=== PATIENT | female | born 1950 | race Caucasian/White ===

== ENCOUNTER → 2019-07-20 15:20 | Outpatient (BNVA) | payer MEDICARE, MEDICAID, SELFPAY | PROVIDERS: Family Provider Family Medicine; PCP Family Medicine; Visit Provider Internal Medicine | DX: K75.81 Nonalcoholic steatohepatitis (NASH) (principal); Z12.11 Encounter for screening for malignant neoplasm of colon | CPT/HCPCS: 80053; 80061; 83036; 85007; 85027 ==

== ENCOUNTER 2019-07-29 08:11 | Day surgery (SDC) | payer MEDICARE, MEDICAID, SELFPAY ==
[2019-07-28 08:03] VITALS: BMI 35.2
[2019-07-29 08:36] VITALS: BP 100/78; PULSE 76; RESP 18; TEMP 36.8; O2SAT 96
--- NOTE | 2019-07-29 08:39 | ANES.PREANES ---
Pre-Anesthetic Assessment Pre-Anesthetic Assessment: Height/Weight: Height 1.7 m Weight 102.058 kg Temp Pulse Resp BP Pulse Ox 98.3 F 76 18 100/78 96 07/29/19 08:36 07/29/19 08:36 07/29/19 08:36 07/29/19 08:36 07/29/19 08:36 Preop Diagnosis: Screen for colon cancer Proposed Procedure: Operation Date: 07/29/19 09:30 Proposed Procedures p Colonoscopy(Not Applicable) - Jose Garza MD Last Intake: 00:00 Social: Social History: No alcohol and No tobacco Exam: Pre-Anes Outpt Exam: alert, oriented x 3, clear to auscultation bilaterally and regular rate & rhythm History/ROS: No significant history except as noted and No significant complaints Pulmonary: Pulmonary: Asthma CV/HEM: CV/HEM: HTN : : None reported Hepatic: Hepatic: Hepatitis GI: GI: GERD Metabolic: Metabolic: None reported Musc/skel: Musc/skel: Lower Back Pain Neuropsych: Neuropsych: Anxiety and Depression Anesthetic Plan: ASA status: III Anesthesia: Anesthesia Evaluation and MAC Risk of > 500 ml blood loss (7ml/kg in children): No PFSH Anesthesia PFSH: Social History Smoking and tobacco status: former smoker Alcohol intake: never Marital status: Data Anesthesia Cardiac Studies: No Data to Display
[2019-07-29] MEDS: sodium chloride 0.9% 1,000 ML 30 ML (08:40)
--- NOTE | 2019-07-29 08:51 | PM.HPUD ---
H&P update H&P Update: DATE OF SURGERY/PROCEDURE: 07/29/19 DATE H&P PERFORMED: 07/20/19 H&P UPDATE INFORMATION: H&P completed within last 30 days and No changes to prior documentation PLANNED PROCEDURE: Operation Date: 07/29/19 09:30 Proposed Procedures p Colonoscopy(Not Applicable) - Jose Garza MD Full H&P Perinent History: Family History: Family History (Updated 07/08/19 @ 14:06 by Elvia Dumont LPN) Sister Stroke Other Cancer Heart disease Hypertension Social History: Social History Smoking and tobacco status: former smoker Alcohol intake: never Marital status:
[2019-07-29 10:04] VITALS: BP 129/73; PULSE 62; RESP 16; TEMP 36.6; O2SAT 94
[2019-07-29 10:16] VITALS: BP 135/85; PULSE 65; RESP 20; O2SAT 96
== END 2019-07-29 10:22 | disposition home or self-care (01) ==
PROVIDERS: Family Provider Family Medicine; PCP Family Medicine; Visit Provider Internal Medicine
PROC: 0DJD8ZZ Inspection of Lower Intestinal Tract, Via Natural or Artificial Opening Endoscopic (ICD-10-PCS; CPT 45378; principal; 2019-07-29 09:30)
DX: Z12.11 Encounter for screening for malignant neoplasm of colon (principal); K76.9 Liver disease, unspecified; K75.81 Nonalcoholic steatohepatitis (NASH); Z79.82 Long term (current) use of aspirin; I10 Essential (primary) hypertension; K21.9 Gastro-esophageal reflux disease without esophagitis
CPT/HCPCS: 12345; 45378; 96365; G0121; J2704; J7030

== ENCOUNTER 2019-08-03 09:52 | Outpatient (CLI) | payer MEDICARE, MEDICAID, SELFPAY ==
--- NOTE | 2019-08-03 10:15 | US_ITS ---
WS: [id number] RIGHT UPPER QUADRANT ULTRASOUND HISTORY: History of CLAY COMPARISON: 06/03/2019 Liver: 19.5 cm in length. Moderate enlargement of the liver with coarsened echotexture and changes of hepatic steatosis. Gallbladder: Normally distended gallbladder with no stones or wall thickening. CBD: 7 mm Pancreas: Tail is obscured by bowel gas. Body and head are normal. Right kidney: 10.3 cm in length. Normal echogenicity with no mass or hydronephrosis. Aorta and IVC: Unremarkable. No ascites. US/US liver [id number] IMPRESSION: 1. Normal gallbladder. 2. Moderate hepatomegaly and hepatic steatosis, similar to the prior study. 3. Common bile duct is top limits normal. There has been a slight increase in size of the common bile duct since 06/03/2019. Increase in size from 3.2 mm to 7.0 mm. May not be significant. If symptoms persist MRCP may be helpful to bett er evaluate the common bile duct.
== END 2019-08-03 09:53 | disposition home or self-care (01) ==
LOC: RAD 09:53
PROVIDERS: Family Provider Family Medicine; PCP Family Medicine; Visit Provider Internal Medicine
DX: K75.81 Nonalcoholic steatohepatitis (NASH) (principal); K76.0 Fatty (change of) liver, not elsewhere classified
CPT/HCPCS: 76705

== ENCOUNTER 2020-01-26 14:39 | Outpatient (CLI) | payer MEDICARE, MEDICAID, SELFPAY ==
--- NOTE | 2020-01-26 14:52 | MM_ITS ---
WS: [id number] BILATERAL DIGITAL SCREENING MAMMOGRAPHY WITH CAD CLINICAL INFORMATION: SCREENING HISTORY: Screening mammogram. No current complaints. COMPARISON: TECHNIQUE: Bilateral CC and MLO views. FINDINGS: Scattered fibroglandular densities bilaterally. No suspicious focal mass, asymmetry, calcifications, or architectural distortion. No evidence of malignancy. Stable nodular density or intramammary lymph node central right breast MM/[id number] IMPRESSION: BI-RADS: 2-Benign FOLLOW UP: 1 Year Follow-up Recommend return to annual screening mammography.
== END 2020-01-26 14:40 | disposition home or self-care (01) ==
PROVIDERS: PCP Family Medicine; Visit Provider Family Medicine
DX: Z12.31 Encounter for screening mammogram for malignant neoplasm of breast (principal)
CPT/HCPCS: 77067

== ENCOUNTER → 2020-02-16 12:12 | Outpatient (BNVA) | payer MEDICARE, MEDICAID, SELFPAY | PROVIDERS: PCP Family Medicine; Visit Provider Nurse Practitioner Family | DX: B37.2 Candidiasis of skin and nail (principal); N39.0 Urinary tract infection, site not specified | CPT/HCPCS: 80053; 81000 ==

== ENCOUNTER → 2020-12-13 11:45 | Outpatient (BNVA) | payer MEDICARE, MEDICAID, SELFPAY | PROVIDERS: PCP Family Medicine; Visit Provider Obstetrics & Gynecology | DX: N89.8 Other specified noninflammatory disorders of vagina (principal); N95.0 Postmenopausal bleeding; N84.1 Polyp of cervix uteri | CPT/HCPCS: 87481; 87512; 87799 ==

== ENCOUNTER → 2020-12-19 15:41 | Outpatient (BNVA) | payer MEDICARE, MEDICAID, SELFPAY | PROVIDERS: PCP Family Medicine; Visit Provider Obstetrics & Gynecology | DX: N95.0 Postmenopausal bleeding (principal); N85.4 Malposition of uterus; N84.1 Polyp of cervix uteri | CPT/HCPCS: 76830 ==

== ENCOUNTER → 2021-01-23 12:31 | Outpatient (BNVA) | payer MEDICARE, MEDICAID, SELFPAY | PROVIDERS: PCP Family Medicine; Visit Provider Obstetrics & Gynecology | DX: Z20.822 Contact with and (suspected) exposure to COVID-19 (principal); N84.1 Polyp of cervix uteri; N95.0 Postmenopausal bleeding | CPT/HCPCS: 87635 ==

== ENCOUNTER 2021-01-28 07:45 | Day surgery (SDC) | payer MEDICARE, MEDICAID, SELFPAY ==
[2021-01-24 11:43] VITALS: BMI 37.1
[2021-01-24 12:11] LABS: Basophils # 0.1 10^3/uL (0.0-0.1); Basophils % 0.7 %; Eosinophils # 0.3 10^3/uL (0.0-0.8); Eosinophils % 3.3 %; Hematocrit 39.6 % (37.0-47.0); Hemoglobin 12.4 g/dL (11.5-15.3); Lymphocytes # 2.2 10^3/uL (0.8-4.8); Lymphocytes % 24.8 %; Mean Corpuscular HGB Conc 31.3 g/dL (30.0-36.0); Mean Corpuscular Hemoglobin 28.3 pg (28.0-34.0); Mean Corpuscular Volume 90.4 fL (81-99); Mean Platelet Volume 9.9 fL (7.4-10.4); Monocytes # 0.8 10^3/uL (0.2-0.9); Monocytes % 8.6 %; Neutrophils # 5.59 10^3/uL (1.8-7.7); Neutrophils % 62.4 %; Nucleated Red Blood Cells % 0 %; Platelet Count 278 10^3/cmm (130-400); Red Blood Count 4.38 10^6/uL (4.1-5.3); Red Cell Distribution Width 14.6 % (12.1-15.1)
[2021-01-24 12:36] LABS: Anion Gap 15.2 (5-19); Blood Urea Nitrogen 14 mg/dL (8-23); Calcium 8.9 mg/dL (8.5-10.5); Carbon Dioxide 25 mmol/L (22-29); Chloride 104 mmol/L (98-107); Glomerular Filtration Rate 62.3 mL/min (90-130); Glucose 149 mg/dL (65-115); Osmolality Calculated 293 mOsm/kg (285-295); Potassium 4.2 mmol/L (3.5-5.1); Sodium 140 mmol/L (136-145)
--- NOTE | 2021-01-24 12:51 | P.ANESASSM_ITS ---
Pre-Anesthetic Assessment Pre-Anesthetic Assessment: Height/Weight: Height 1.68 m Weight 104.326 kg Preop Diagnosis: Screen for colon cancer Proposed Procedure: Operation Date: 01/28/21 12:55 Proposed Procedures p Hysteroscopy, dilation and curettage with myosure [id number] N95.0 N84.1(Not Applicable) - Jess Mccartney MD Was Beta Raghu taken within 24 hours: Yes Was Clonidine taken within 24 hours: N/A Social: Social History: Tobacco and No alcohol Exam: Pre-Anes Outpt Exam: alert, oriented x 3, clear to auscultation bilaterally and regular rate & rhythm Airway: Submandibular: WNL Cervical ROM: WNL MP: 2 Dentition: False Pulmonary: Pulmonary: COPD CV/HEM: CV/HEM: HTN Hepatic: Hepatic: Hepatitis (CLAY) GI: GI: GERD Metabolic: Metabolic: Morbid obesity Anesthetic Plan: ASA status: 3 Anesthesia: General Risk of > 500 ml blood loss (7ml/kg in children): No PFSH Anesthesia PFSH: Family History Sister Stroke mini strokes Hypertension Father Cancer Lung Hypertension Mother Cancer unsure-had to do with the heart Hypertension Brother Hypertension Denies family history of Diabetes Ovarian cyst Clotting disorder Heart disease Chronic kidney disease (CKD) Bleeding disorder Thyroid disease Social History Marital status: Data Anesthesia CBC & Chem 7: 01/24/21 11:57 01/24/21 11:57 Other Labs: Laboratory Results - last 48 hr 01/24/21 01/24/21 11:57 11:57 WBC 9.0 RBC 4.38 Hgb 12.4 Hct 39.6 MCV 90.4 MCH 28.3 MCHC 31.3 RDW 14.6 Plt Count 278 MPV 9.9 Neut % (Auto) 62.4 Lymph % (Auto) 24.8 [place] % (Auto) 8.6 Eos % (Auto) 3.3 Baso % (Auto) 0.7 Neut # (Auto) 5.59 Lymph # (Auto) 2.2 [place] # (Auto) 0.8 Eos # (Auto) 0.3 Baso # (Auto) 0.1 Nucleated RBC % (auto) 0 Nucleated RBCs # 0.0 Sodium 140 Potassium 4.2 Chloride 104 Carbon Dioxide 25 Anion Gap 15.2 BUN 14 Creatinine 0.9 GFR Calculation 62.3 L Glucose 149 H Calculated Osmolality 293 Calcium 8.9 Cardiac Studies: No Data to Display
[2021-01-28] VITALS (8 sets, daily range): BP systolic 81–157; BP diastolic 68–97; PULSE 72–81; RESP 17–20; TEMP 36.9–37.3; O2SAT 92–97
--- NOTE | 2021-01-28 08:02 | W.PM.OPSUD ---
Surgery/Procedure H&P Update DATE OF PROCEDURE: January 28, 2021 DATE H&P PERFORMED: 01/23/21 H&P UPDATE INFORMATION: I have reviewed H&P completed within last 30 days, I have examined patient prior to procedure and No changes to prior documentation CHANGES TO PREVIOUS DOCUMENTATION: The patient reports that she took all of the preop medication. (cytotec, phenergan, ibuprofen) Last dose at 6:30 this morning. PREOP DIAGNOSIS: post menopausal bleeding, endocervical polyp PLANNED PROCEDURE: Operation Date: 01/28/21 12:55 Proposed Procedures p Hysteroscopy, dilation and curettage with myosure [id number] N95.0 N84.1(Not Applicable) - Jess Mccartney MD
[2021-01-28] MEDS: ketorolac 30 mg/mL INJ IVP (08:14)
[2021-01-28] MEDS: sodium chloride 0.9% 1,000 ML 30 ML IV (08:15)
--- NOTE | 2021-01-28 08:29 | P.ANESUD_ITS ---
Pre-Anesthetic Update Pre-Anesthetic Assessment: Date of Surgery/Procedure: 01/28/21 Preop Dolly gnosis: post menopausal bleeding, endocervical polyp Proposed Procedure: Operation Date: 01/28/21 12:55 Proposed Procedures p Hysteroscopy, dilation and curettage with myosure [id number] 38080 N95.0 N84.1(Not Applicable) - Jess Mccartney MD Any changes to Pre-Anesthetic Assessment?: No Last Intake: Intake Last Liquid Date 01/27/21 Last Liquid Time 21:00 Last Solid Date 01/27/21 Last Solid Time 21:00 Vitals: Temperature 99.2 F 01/28/21 08:01 Temperature Source Temporal Artery S can 01/28/21 08:01 Pulse Rate 77 01/28/21 08:01 Respiratory Rate 18 01/28/21 08:01 Blood Pressure 157/97 01/28/21 08:01 Blood Pressure Andreia n 117 01/28/21 08:01 Pulse Oximetry 95 01/28/21 08:01 Oxygen Delivery Me thod 01/28/21 08:11 Exam: Pre-Anes Outpt Exam: alert, oriented x 3, clear to auscultation bi laterally and regular rate & rhythm
--- NOTE | 2021-01-28 09:30 | P.OP_ITS ---
Operative Report Date of procedure: January 28, 2021 Pre-op Diagnosis: post menopausal bleeding, endocervical polyp Post-op diagnosis: same Procedure Done: hysteroscopy, Dilation and curettage with myosure Specimens removed/disposition: endocervical polyp to pathology Surgeon: Jess Mccartney Anesthesia: General Estimated blood loss (mL): 50 IV fluids (mL): 800 Urine output (mL): 0 Complications: cervical laceration at 9:00 Findings: 7 week sized atrophic uterus with several endocervical polyps Condition: stable Disposition: PACU Brief History: The patient presented for PMB. She was found to have an endocervical polyp on exam. It was flush with the cervix and unable to be removed in the office Procedure: The patient was taken to the operating room where monitored anesthesia was administered and to be adequate. She was prepped and draped in the normal sterile fashion in the dorsal lithotomy position in [facility]. A weighted speculum was placed into the vagina and the anterior lip of the cervix grasped with a single-tooth tenaculum. The uterus was sounded to 7 cm. The cervix was dilated to 16 [place]. The hysteroscope was advanced into the endometrial cavity. There was an atrophic endometrium and several endocervical polyps visualized. The MyoSure device was activated and the endocervical tissue was removed. Pictures were taken pre and post procedure. There was a cervical laceration at 9:00. This was likely from the polypectomy and this was the deficit tissue. This was repaired with 0 Vicryl in 2 single interrupted sutures. There was also an area at 7:00 that was bleeding and a stitch was pl aced here as well. All instruments were removed. There was good hemostasis post suture and vaginal packing was placed to tamponade any further bleeding. It will be removed prior to discharge. The patient tolerated the procedure well. Sponge lap and needle counts were correct x3. She was taken to the recovery room in stable condition.
--- NOTE | 2021-01-28 09:39 | PM.DCS ---
Discharge Providers Date of Discharge: January 28, 2021 Attending Provider at Discharge: Jess Mccartney MD Primary Care Provider: Dennis Regalado MD Diagnoses at Discharge Discharge Diagnosis (1) Postoperative state: Status: Acute Reason for Visit Reason for Visit: Hysteroscopy, dilation and curettage with myosure Hospital Course Hospital Course The patient was admitted for surgery. She did well postoperatively and was ready for discharge. Discharge Data Data Completed and Pending: Pending at discharge Category Date Time Status ES surgery / GI i mages Routine Exams 01/28/21 08:15 Taken Pathology: Surgic al [PTH] Routine Pth 01/28/21 09:10 Ordered Vitals: Last Vital Signs Temp 99.2 F 01/28/21 09:33 Pulse 74 01/28/21 09:35 Resp 18 01/28/21 09:35 BP 113/69 01/28/21 09:35 Pulse Ox 97 01/28/21 09:35 Discharge Plan Discharge Patient Disposition: Home Condition: Stable Prescriptions: Continued duloxetine [Cymbalta] 60 mg capsule,delayed release(DR/EC) 60 mg PO ONCE RF: 0 hydrocodone-acetaminophen [[place]] 10-325 mg tablet 1 tab PO Q6H RF: 0 metoprolol tartrate 50 mg tablet 50 mg PO BID RF: 0 clonazepam 1 mg tablet 1 mg PO QID RF: 0 aspirin [Adult Aspirin Regimen] 81 mg tablet,delayed release (DR/EC) 81 mg PO DAILY RF: 0 pantoprazole 20 mg tablet,delayed release (DR/EC) 20 mg PO BID RF: 0 pregabalin [Lyrica] 75 mg capsule 75 mg PO BID RF: 0 Symbicort 160-4.5 mcg/actuation HFA aerosol inhaler 2 puff INHALATION BID RF: 0 duloxetine 30 mg capsule, delayed rel sprinkle 30 mg PO DAILY RF: 0 quetiapine [Seroquel] 100 mg tablet 400 mg PO .COMPLEX RF: 0 misoprostol [Cytotec] 200 mcg tablet 600 mcg PO Q6H Qty: 12 RF: 0 promethazine 25 mg tablet 25 mg PO Q6H PRN (Reason: nausea and vomiting) Qty: 30 RF: 0 ibuprofen 600 mg tablet 600 mg PO Q6H PRN (Reason: pain) Qty: 30 RF: 0 Discharge Orders: Discharge Order (Routine); Ordered 01/28/21 Ordered By: Jess Mccartney Discharge Attestations Time Spent in Discharge Care*: less than 30 min Quality Metrics Clinical Quality Measures During this hospital stay, did patient experience: None Coding Level of Care Code Acute Chg FW DC note Diagnoses Postoperative state Z98.890
--- NOTE | 2021-01-28 09:40 | SUR.PHASEI ---
PT TO PACU SLEEPS WITH ORAL AIRWAY IN PLACE , VSS IV PATENT ABD SOFT, TORIE PAD D/I PT AWAKES TO VOICE ORAL AIRWAY OUT NOW
--- NOTE | 2021-01-28 15:09 | ANE.PACU2 ---
Inpatient post-anesthesia follow up: Airway intact: Yes Vital signs: Temperature 98.4 F Pulse Rate 77 Respiratory Rate 18 Blood Pressure 120/85 Pulse Oximetry 94 Oxygen Delivery Me thod Room Air Oxygen Flow Rate 8 Fraction of Inspir ed Oxygen Hydration adequate: Yes Nausea and vomiting: No Pain level: 3 Mental status: Baseline
== END 2021-01-28 10:52 | disposition home or self-care (01) ==
PROVIDERS: PCP Family Medicine; Visit Provider Obstetrics & Gynecology
PROC: 0UDB8ZZ Extraction of Endometrium, Via Natural or Artificial Opening Endoscopic (ICD-10-PCS; CPT 58558; principal; 2021-01-28 08:45)
DX: N95.0 Postmenopausal bleeding (principal); J44.9 Chronic obstructive pulmonary disease, unspecified; I10 Essential (primary) hypertension; K21.9 Gastro-esophageal reflux disease without esophagitis; E66.01 Morbid (severe) obesity due to excess calories; Z68.37 Body mass index [BMI] 37.0-37.9, adult; Z87.891 Personal history of nicotine dependence
CPT/HCPCS: 58558; 80048; 85025; 87086; 88305; 96365; 96374; J0690; J1100; J1885; J2405; J2704; J3010; J7030

== ENCOUNTER → 2021-02-11 12:53 | Outpatient (BNVA) | payer MEDICARE, MEDICAID, SELFPAY | PROVIDERS: PCP Family Medicine; Visit Provider Obstetrics & Gynecology | DX: R30.0 Dysuria (principal) | CPT/HCPCS: 81000; 87077; 87086; 87184 ==

== ENCOUNTER → 2021-02-25 13:20 | Outpatient (BNVA) | payer MEDICARE, MEDICAID, SELFPAY | PROVIDERS: PCP Family Medicine; Visit Provider Obstetrics & Gynecology | DX: R32 Unspecified urinary incontinence (principal) | CPT/HCPCS: 81000 ==

== ENCOUNTER 2021-05-13 10:28 | Outpatient (CLI) | payer MEDICARE, MEDICAID, SELFPAY ==
--- NOTE | 2021-05-13 10:35 | MM_ITS ---
WS: [id number] BILATERAL SCREENING DIGITAL MAMMOGRAM WITH CAD HISTORY: SCREENING COMPARISON: 01/26/2020 and 12/13/2018 Bilateral CC and MLO views submitted. Computer aided detection analyzed. Breast composition: There are scattered areas of fibroglandular density. No suspicious masses, microc alcifications or architectural distortion. Benign calcifications in each breast. MM/[place] [id number] IMPRESSION: BI-RADS: 2-Benign FOLLOW UP: 1 Year Follow-up
== END 2021-05-13 10:29 | disposition home or self-care (01) ==
LOC: RADSHAW 10:32
PROVIDERS: PCP Family Medicine; Visit Provider Family Medicine
DX: Z12.31 Encounter for screening mammogram for malignant neoplasm of breast (principal)
CPT/HCPCS: 77067

== ENCOUNTER → 2022-03-23 15:41 | Outpatient (BNVA) | payer MEDICARE, MEDICAID, SELFPAY | PROVIDERS: PCP Family Medicine; Visit Provider Nurse Practitioner | DX: R39.9 Unspecified symptoms and signs involving the genitourinary system (principal); R30.0 Dysuria | CPT/HCPCS: 81000; 87086 ==

== ENCOUNTER 2023-05-04 13:14 | Outpatient (CLI) | payer OTHER, MEDICAID, SELFPAY ==
--- NOTE | 2023-05-04 13:27 | MM_ITS ---
WS: [id number] BILATERAL 3D TOMOSYNTHESIS DIGITAL SCREENING MAMMOGRAPHY WITH CAD CLINICAL INFORMATION: SCREENING HISTORY: Screening mammogram. No current complaints. COMPARISON: 2020 TECHNIQUE: Bilateral CC and MLO views. FINDINGS: Scattered fibroglandular densities bilaterally. No suspicious focal mass, asymmetry, calcifications, or architectural distortion. No evidence of malignancy. Incidental punctate calcifications. IMPRESSION: MM/[place] [id number] BI-RADS: 2-Benign FOLLOW UP: 1 Year Follow-up Recommend return to annual screening mammography.
== END 2023-05-04 13:15 | disposition home or self-care (01) ==
LOC: RAD 13:15
PROVIDERS: PCP Family Medicine; Visit Provider Family Medicine
DX: Z12.31 Encounter for screening mammogram for malignant neoplasm of breast (principal)
CPT/HCPCS: 77063; 77067

== ENCOUNTER 2023-08-30 02:41 | Emergency (ER) | payer OTHER, MEDICAID, SELFPAY ==
--- NOTE | 2023-08-30 02:42 | XRR_ITS ---
PROCEDURE INFORMATION: Exam: XR Abdomen Exam date and time: 08/30/2023 2:46 AM Age: 73 years old Clinical indication: Patient HX: C/O constipation x 1 week TECHNIQUE: Imaging protocol: Radiologic exam of the abdomen. Views: Frontal supine view of the abdomen. 1 View. COMPARISON: CR XR KUB [id number] 03/24/2017 8:22 AM FINDINGS: Gastrointestinal tract: Moderate stool is present within the colon. Bones/joints: Unremarkable. XR/XR KUB [id number] IMPRESSION: 1. Moderate stool present within the colon. 2. There are no other acute abdominal findings.
[2023-08-30 02:47] VITALS: BP 111/62; PULSE 73; RESP 18; TEMP 36.4; O2SAT 94; BMI 37.1
--- NOTE | 2023-08-30 02:55 | ED_ITS ---
HPI - Abdominal Pain General: Chief Complaint: Abdominal Pain Stated Complaint: Constipation Time Seen by Provider: 08/30/23 02:43 Source: patient Mode of arrival: ambulatory Limitations: no limitations History of Present Illness: 73-year-old female is has a history of c onstipation she states she has not had a bowel movement in 1 week. States she is starting to have some left lower quadrant abdominal pain from her constipation she denies any fevers denies any vomiting denies any worsening improving factors. Associated Symptoms: Reports constipation; Denies chills, diarrhea, dysuria, fever(s), nausea and vomiting Review of Systems Const: Denies: fever(s), chills, body aches or change in appetite ENMT: Denies: throat pain or dental pain Card: Denies: chest pain Resp: Denies: dyspnea GI: Reports: abdominal pain and constipation; Denies: nausea, vomiting or diarrhea : Denies: dysuria Musc: Denies: neck pain or back pain Skin/Breast: Denies: rash Neuro: Denies: headache(s) PFSH ED PFSH: Medical History Recurrent urinary tract infection Family History Sister Stroke mini strokes Hypertension Father Cancer Lung Hypertension Mother Cancer unsure-had to do with the heart Hypertension Brother Hypertension Denies family history of Diabetes Ovarian cyst Clotting disorder Heart disease Chronic kidney disease (CKD) Bleeding disorder Thyroid disease Social History Substance/Drug Use: never Marital status: Physical Exam Const: COMMON NORMALS: no acute distress, patient oriented x3 and healthy appearing HENMT: COMMON NORMALS: normocephalic and atraumatic HEAD & SCALP: normocephalic and atraumatic Neck/C-Spine: COMMON NORMALS: full ROM and supple Chest: COMMONS NORMALS: normal inspection of the chest Resp: COMMON NORMALS: normal respiratory effort Cardio: COMMON NORMALS: regular rate, regular rhythm and No murmurs present (Cardio) RATE: regular rate RHYTHM: regular rhythm GI: COMMON NORMALS: Normal to inspection, nondistended, normoactive bowel sounds present, Soft to palpation, non-tender and no masses PALPATION: Yes Soft to palpation Extremity: COMMON NORMALS: normal to inspection and full ROM Neuro: COMMON NORMALS: patient oriented x3, moves all extremities and no focal motor deficits Psych: COMMON NORMALS: mental status grossly normal, Normal thought process present and cooperative THOUGHT PROCESS: Normal thought process present Skin: COMMON NORMALS: no rashes or lesions noted and no wounds GENERAL SKIN EXAM: no rashes or lesions noted Course Vital Signs: Vital signs: Vital Signs Temperature 97.5 F L 08/30/23 02:47 Pulse Rate 73 08/30/23 02:47 Respiratory Rate 18 08/30/23 02:47 Blood Pressure 111/62 08/30/23 02:47 Pulse Oximetry 94 08/30/23 02:47 Oxygen Delivery Me thod Room Air 08/30/23 02:47 MDM - Abdominal Pain Medical Decision Making Patient presents here with constipation patient had a bowel movement here after lactulose and enema she feels much improved we will prescribe MiraLAX for home she is stable for discharge follow-up PCP return if worsening Medical Records I reviewed the patient's medical records. Lab Data Labs/Radiology: Radiology Impressions KUB X-Ray 08/30/23 02:42 IMPRESSION: 1. Moderate stool present within the colon. 2. There are no other acute abdominal findings. All radiology interpretation(s) finalized by discharge Discharge Plan Discharge Patient Disposition: Home Clinical Impression: Constipation Condition: Stable Prescriptions: New Miralax 17 gram powder in packet 17 g PO DAILY PRN (Reason: constipation) Qty: 14 0RF No Action duloxetine [Cymbalta] 60 mg capsule,delayed release(DR/EC) 60 mg PO ONCE hydrocodone-acetaminophen [[place]] 10-325 mg tablet 1 tab PO Q6H metoprolol tartrate 50 mg tablet 50 mg PO BID clonazepam 1 mg tablet 1 mg PO QID aspirin [Adult Aspirin Regimen] 81 mg tablet,delayed release (DR/EC) 81 mg PO DAILY pantoprazole 20 mg tablet,delayed release (DR/EC) 20 mg PO BID pregabalin [Lyrica] 75 mg capsule 75 mg PO BID Symbicort 160-4.5 mcg/actuation HFA aerosol inhaler 2 puff INHALATION BID duloxetine 30 mg capsule, delayed rel sprinkle 30 mg PO DAILY quetiapine [Seroquel] 100 mg tablet 400 mg PO .COMPLEX Rx Instructions: 400 mg PO at bedtime; misoprostol [Cytotec] 200 mcg tablet 600 mcg PO Q6H Qty: 12 0RF promethazine 25 mg tablet 25 mg PO Q6H PRN (Reason: nausea and vomiting) Qty: 30 0RF ibuprofen 600 mg tablet 600 mg PO Q6H PRN (Reason: pain) Qty: 30 0RF phenazopyridine [Pyridium] 200 mg tablet 200 mg PO TID Qty: 6 0RF nitrofurantoin monohyd/m-cryst [Macrobid] 100 mg capsule 100 mg PO Q12H 7 Days Qty: 14 0RF Rx Instructions: must administer with a meal/food Discharge Orders: Discharge ED (Routine); Ordered 08/30/23 Ordered By: Merritt Juarez Referrals: Dennis Regalado MD [Primary Care Provider] - 4-7 days Discharge Diet: Advance as tolerated Discharge Activity: Resume usual activity Patient Instructions: Constipation (ED) Coding Level of Care Code ED Cheese Wrapper for Ruperto Oro
[2023-08-30] MEDS: lactulose oral liq 20 gm/30 mL UDC 30 GM PO (03:02)
[2023-08-30] MEDS: Fleet Enema 133 mL Enema PR (03:58)
[2023-08-30 04:48] VITALS: PULSE 82; RESP 18; O2SAT 95
== END 2023-08-30 04:26 | disposition home or self-care (01) ==
PROVIDERS: Emergency Provider Emergency Medicine; PCP Family Medicine
DX: K59.00 Constipation, unspecified (principal); Z79.82 Long term (current) use of aspirin
CPT/HCPCS: 74018; 99284

== ENCOUNTER 2023-09-24 10:47 | Outpatient (CLI) | payer MEDICARE, MEDICAID, SELFPAY ==
--- NOTE | 2023-09-24 11:00 | MM_ITS ---
WS: [id number] BILATERAL 3D TOMOSYNTHESIS DIGITAL DIAGNOSTIC MAMMOGRAPHY WITH CAD CLINICAL INFORMATION: BREAST PAIN HISTORY: RIGHT side breast pain COMPARISON: 2022 TECHNIQUE: Bilateral CC, MLO, and ML views. FINDINGS: Scattered fibroglandular densities bilaterally. A few incidental punctate calcifications. No suspicio us parenchymal abnormalities in the area of pain RIGHT breast. Ultrasound is pending. LEFT breast is unremarkable. ULTRASOUND BREAST RIGHT TECHNIQUE: Ultrasound right breast focused area of concern. CLINICAL INFORMATION: BREAST PAIN FINDINGS: Ultrasound RIGHT breast in the area of concern 2 to 4 o'clock position. Normal underlying parenchymal tissue. No cystic or solid lesions. No suspicious lesions to target for biopsy. Recommend return to annual screening mammography. IMPRESSION: MM/[id number] BI-RADS: 2-Benign FOLLOW UP: 1 Year Follow-up Recommend return to annual screening mammography.
== END 2023-09-24 10:48 | disposition home or self-care (01) ==
LOC: RAD 10:48
PROVIDERS: PCP Family Medicine; Visit Provider Nurse Practitioner Family
DX: N64.4 Mastodynia (principal); R92.323 Mammographic fibroglandular density, bilateral breasts
CPT/HCPCS: 76642; 77062; G0279

== ENCOUNTER 2023-12-29 22:23 | Emergency (ER) | payer MEDICARE, MEDICAID, SELFPAY ==
[2023-12-29 22:27] VITALS: BP 150/102; PULSE 80; RESP 18; TEMP 36.7; O2SAT 94; BMI 35.5
--- NOTE | 2023-12-29 22:31 | XRR_ITS ---
PROCEDURE INFORMATION: Exam: XR Abdomen Exam date and time: 12/29/2023 10:42 PM Age: 73 years old Clinical indication: Constipation; Additional info: Abd pain TECHNIQUE: Imaging protocol: Radiologic exam of the abdomen. Views: Frontal supine view of the abdomen. 1 View. COMPARISON: CR XR KUB [id number] 08/30/2023 2:46 AM FINDINGS: Gastrointestinal tract: Moderate constipation without bowel dilation to indicate obstruction. Bones/joints: Unremarkable. XR/XR KUB portable [id number] IMPRESSION: Moderate constipation without bowel dilation to indicate obstruction.
--- NOTE | 2023-12-29 23:40 | ED_ITS ---
HPI - Abdominal Pain 2 General: Chief Complaint: Abdominal Pain Stated Complaint: abd pain Time Seen by Provider: 12/29/23 23:40 History of Present Illness: Presents to the ER with history of constipation. Patient said her last bowel movement was sometime last week. Patient attempted digital removal herself but was unsuccessful. She did notice some bleeding in her rectum after she was done. Patient does have a history of hemorrhoids. Patient says she gets this way very frequently but this time may be worse. Review of Systems 2 General: Reports: 10 or more systems reviewed and unremarkable except in HPI and below PFSH ED 2 PFSH: Medical History Recurrent urinary tract infection Family History Sister Stroke mini strokes Hypertension Father Cancer Lung Hypertension Mother Cancer unsure-had to do with the heart Hypertension Brother Hypertension Denies family history of Diabetes Ovarian cyst Clotting disorder Heart disease Chronic kidney disease (CKD) Bleeding disorder Thyroid disease Social History Substance/Drug Use: never Marital status: Physical Exam 2 Const: COMMON NORMALS: no acute distress, average body habitus, patient oriented x3, no limitations, healthy appearing, alert and well nourished Neck/C-Spine: COMMON NORMALS: no JVD Chest: COMMONS NORMALS: normal inspection of the chest and normal palpation of entire chest wall Resp: COMMON NORMALS: normal respiratory effort, No retractions, No use of accessory muscles and clear to auscultation bilaterally AUSCULTATION: clear to auscultation bilaterally Cardio: COMMON NORMALS: no JVD, regular rate, regular rhythm, S1 normal heart sound present, S2 normal heart sound present, No gallops present (Cardio), No clicks present (Cardio), No murmurs present (Cardio) and No rub (Cardio) R ATE: regular rate RHYTHM: regular rhythm HEART SOUNDS: S1 normal heart sound present and S2 normal heart sound present GI: COMMON NORMALS: Normal to inspection, nondistended, normoactive bowel sounds present, Soft to palpation, non-tender, No hepatosplenomegaly present and no masses PALPATION: Yes Soft to palpation and Yes No hepatosplenomegaly present Neuro: COMMON NORMALS: patient oriented x3 SENSORIUM/ORIENTATION: Yes alert Course 2 Vital Signs: Vital signs: Vital Signs Temperature 98.0 F 12/29/23 22:27 Pulse Rate 80 12/29/23 22:27 Respiratory Rate 18 12/29/23 22:27 Blood Pressure 150/102 12/29/23 22:27 Pulse Oximetry 94 12/29/23 22:27 Oxygen Delivery Me thod Room Air 12/29/23 22:27 MDM - Abdominal Pain Medical Decision Making Patient had lab work CBC CMP and KUB x-ray, lab work was unremarkable, KUB showed moderate constipation without any indication of obstruction. Patient was given 1 dose of lactulose here in ER, patient refused senna S, patient will be discharged home with GoLytely. Patient should follow-up with her PCP within neck 7 days. Differential Diagnosis Likely constipation Medical Records I reviewed the patient's medical records. Lab Data I reviewed the patient's lab results. 12/30/23 00:03 12/30/23 00:03 Labs/Radiology: Radiology Impressions KUB X-Ray 12/29/23 22:31 IMPRESSION: Moderate constipation without bowel dilation to indicate obstruction. Laboratory Results WBC 7.54 10^3/uL (3.29-11.43) 12/30/23 00:03 RBC 4.40 10^6/uL (3.85-5.65) 12/30/23 00:03 Hgb 11.50 g/dL (11.27-16.99) 12/30/23 00:03 Hct 37.0 % (36-47) 12/30/23 00:03 MCV 84.1 fl (85-98) L 12/30/23 00:03 MCH 26.1 pg (27-33) L 12/30/23 00:03 MCHC 31.1 g/dL (30-55) 12/30/23 00:03 RDW 17.2 % (12.1-15.1) H 12/30/23 00:03 Plt Count 310 10^3/cmm (157-399) 12/30/23 00:03 MPV 9.9 fL (7.4-10.4) 12/30/23 00:03 Neut % (Auto) 60.8 % 12/30/23 00:03 Lymph % (Auto) 27.7 % 12/30/23 00:03 Rabun % (Auto) 7.8 % 12/30/23 00:03 Eos % (Auto) 2.5 % 12/30/23 00:03 Baso % (Auto) 0.8 % 12/30/23 00:03 Neut # (Auto) 4.58 10^3/uL (1.8-7.7) 12/30/23 00:03 Lymph # (Auto) 2.1 10^3/uL (0.8-4.8) 12/30/23 00:03 Rabun # (Auto) 0.6 10^3/uL (0.2-0.9) 12/30/23 00:03 Eos # (Auto) 0.2 10^3/uL (0.0-0.8) 12/30/23 00:03 Baso # (Auto) 0.1 10^3/uL (0.0-0.1) 12/30/23 00:03 Nucleated RBC % (auto) 0 % 12/30/23 00:03 Nucleated RBCs # 0.0 /100WBC 12/30/23 00:03 Sodium 139 mmol/L (136-145) 12/30/23 00:03 Potassium 4.5 mmol/L (3.5-5.1) 12/30/23 00:03 Chloride 103 mmol/L (98-107) 12/30/23 00:03 Carbon Dioxide 24 mmol/L (22-29) 12/30/23 00:03 Anion Gap 16.5 (5-19) 12/30/23 00:03 BUN 12 mg/dL (8-23) 12/30/23 00:03 Creatinine 0.9 mg/dL (0.5-0.9) 12/30/23 00:03 GFR Calculation Not Reportable 12/30/23 00:03 Glucose 104 mg/dL (65-115) 12/30/23 00:03 Calculated Osmolality 288 mOsm/kg (285-295) 12/30/23 00:03 Calcium 9.2 mg/dL (8.5-10.5) 12/30/23 00:03 Total Bilirubin 0.2 mg/dL (0.15-1.2) 12/30/23 00:03 AST 32 U/L (0-32) 12/30/23 00:03 ALT 24 U/L (0-33) 12/30/23 00:03 Alkaline Phosphatase 108 U/L (35-105) H 12/30/23 00:03 Total Protein 8.0 g/dL (6.6-8.7) 12/30/23 00:03 Albumin 4.4 g/dL (3.5-5.2) 12/30/23 00:03 Globulin 3.6 g/dL (1.3-4.6) 12/30/23 00:03 Lipase 43 U/L (13-60) 12/30/23 00:03 All radiology interpretation(s) finalized by discharge Discharge Plan Discharge Patient Disposition: Home Clinical Impression: Acute constipation Condition: Stable Prescriptions: New peg 3350-electrolytes [Golytely] 236-22.74-6.74 -5.86 gram recon soln 240 ml PO Q10M Qty: 4000 0RF Rx Instructions: until fecal effluent is clear No Action duloxetine [Cymbalta] 60 mg capsule,delayed release(DR/EC) 60 mg PO ONCE hydrocodone-acetaminophen [[place]] 10-325 mg tablet 1 tab PO Q6H metoprolol tartrate 50 mg tablet 50 mg PO BID clonazepam 1 mg tablet 1 mg PO QID aspirin [Adult Aspirin Regimen] 81 mg tablet,delayed release (DR/EC) 81 mg PO DAILY pantoprazole 20 mg tablet,delayed release (DR/EC) 20 mg PO BID pregabalin [Lyrica] 75 mg capsule 75 mg PO BID Symbicort 160-4.5 mcg/actuation HFA aerosol inhaler 2 puff INHALATION BID duloxetine 30 mg capsule, delayed rel sprinkle 30 mg PO DAILY quetiapine [Seroquel] 100 mg tablet 400 mg PO .COMPLEX Rx Instructions: 400 mg PO at bedtime; misoprostol [Cytotec] 200 mcg tablet 600 mcg PO Q6H Qty: 12 0RF promethazine 25 mg tablet 25 mg PO Q6H PRN (Reason: nausea and vomiting) Qty: 30 0RF ibuprofen 600 mg tablet 600 mg PO Q6H PRN (Reason: pain) Qty: 30 0RF phenazopyridine [Pyridium] 200 mg tablet 200 mg PO TID Qty: 6 0RF nitrofurantoin monohyd/m-cryst [Macrobid] 100 mg capsule 100 mg PO Q12H 7 Days Qty: 14 0RF Rx Instructions: must administer with a meal/food Miralax 17 gram powder in packet 17 g PO DAILY PRN (Reason: constipation) Qty: 14 0RF Proctofoam 1 % foam 1 applic LA BID Qty: 15 0RF Discharge Orders: Discharge ED (Routine); Ordered 12/30/23 Ordered By: Rakesh Vo Referrals: Dennis Regalado MD [Primary Care Provider] - 1 week Patient Instructions: Constipation - Adult, High Fiber Diet (ED) Activity Restrictions/Additional Instructions: Your blood work was unremarkable, your x-ray showed you have moderate constipation with no indication for obstruction. You are given lactulose and GoLytely here in ER please follow the instructions on them. This should clean your colon out. Please increase your fiber in your diet. Please continue your bowel regimen please follow-up with your family practitioner the next 7 days for further evaluation and treatment as needed. Coding Level of Care Code ED Activities Concierge for Ruperto Oro
[2023-12-30 00:32] LABS: Alanine Aminotransferase 24 U/L (0-33); Albumin Level 4.4 g/dL (3.5-5.2); Alkaline Phosphatase 108 U/L (35-105); Aspartate Amino Transferase 32 U/L (0-32); Basophils # 0.1 10^3/uL (0.0-0.1); Basophils % 0.8 %; Blood Urea Nitrogen 12 mg/dL (8-23); Calcium 9.2 mg/dL (8.5-10.5); Carbon Dioxide 24 mmol/L (22-29); Chloride 103 mmol/L (98-107); Creatinine Clr Calc Pharmacy 68.3309; Eosinophils # 0.2 10^3/uL (0.0-0.8); Eosinophils % 2.5 %; Globulin 3.6 g/dL (1.3-4.6); Glucose 104 mg/dL (65-115); Lipase 43 U/L (13-60); Lymphocytes # 2.1 10^3/uL (0.8-4.8); Lymphocytes % 27.7 %; Mean Corpuscular HGB Conc 31.1 g/dL (30-55); Mean Corpuscular Hemoglobin 26.1 pg (27-33); Mean Corpuscular Volume 84.1 fl (85-98); Mean Platelet Volume 9.9 fL (7.4-10.4); Monocytes # 0.6 10^3/uL (0.2-0.9); Monocytes % 7.8 %; Neutrophils # 4.58 10^3/uL (1.8-7.7); Neutrophils % 60.8 %; Nucleated Red Blood Cells % 0 %; Osmolality Calculated 288 mOsm/kg (285-295); Platelet Count 310 10^3/cmm (157-399); Red Cell Distribution Width 17.2 % (12.1-15.1); Sodium 139 mmol/L (136-145); Total Bilirubin 0.2 mg/dL (0.15-1.2); White Blood Count 7.54 10^3/uL (3.29-11.43)
[2023-12-30] MEDS: lactulose oral liq 20 gm/30 mL UDC 30 GM PO (00:36)
[2023-12-30 00:37] LABS: Anion Gap 16.5 (5-19); Potassium 4.5 mmol/L (3.5-5.1)
--- NOTE | 2023-12-30 01:10 | PC.NURSE ---
Go-Lyte solution was ordered, this rx is locked in pharmacy and nurse is unable to obtain. Provider sent electronic order to [facility] pharmacy for this prescription. Pt was ntfd that this rx is not available at this time in the ER and that prescription has been called in for her to pickup in the morning if the lactulose does not produce a bm tonight
== END 2023-12-30 01:12 | disposition home or self-care (01) ==
PROVIDERS: Emergency Medicine; Emergency Provider Emergency Medicine; PCP Family Medicine
DX: K59.00 Constipation, unspecified (principal); Z79.82 Long term (current) use of aspirin
CPT/HCPCS: 36415; 74018; 80053; 83690; 85025; 99284

== ENCOUNTER 2024-11-10 11:32 | Outpatient (CLI) | payer MEDICAID, MEDICARE, SELFPAY ==
--- NOTE | 2024-11-10 11:40 | MM_ITS ---
WS: [id number] BILATERAL 3D TOMOSYNTHESIS DIGITAL SCREENING MAMMOGRAPHY WITH CAD CLINICAL INFORMATION: SCREENING HISTORY: Screening mammogram. No current complaints. COMPARISON: 2023 TECHNIQUE: Bilateral CC and MLO views. FINDINGS: Scattered fibroglandular densities bilaterally. No suspicious focal mass, asymmetry, calcifications, or architectural distortion. No evidence of malignancy. Incidental punctate calcifications. MM/MM [facility] tomosynthesis [id number] IMPRESSION: DENSITY: There are scattered areas of fibroglandular density. BI-RADS: 2 - Benign. FOLLOW UP: 1 Year Follow-up Recommend return to annual screening mammography.
== END 2024-11-10 11:33 | disposition home or self-care (01) ==
PROVIDERS: PCP Family Medicine; Visit Provider Family Medicine
DX: Z12.31 Encounter for screening mammogram for malignant neoplasm of breast (principal); R92.323 Mammographic fibroglandular density, bilateral breasts; R92.1 Mammographic calcification found on diagnostic imaging of breast
CPT/HCPCS: 77063; 77067

== ENCOUNTER → 2025-01-27 09:13 | Outpatient (BNVA) | payer MEDICARE, MEDICAID, SELFPAY | PROVIDERS: PCP Family Medicine; Visit Provider Family Medicine | DX: E11.9 Type 2 diabetes mellitus without complications (principal) | CPT/HCPCS: 80053; 80061; 82043; 83036; 85025 ==

== ENCOUNTER → 2025-02-14 10:20 | Outpatient (BNVA) | payer MEDICARE, MEDICAID, SELFPAY | PROVIDERS: PCP Family Medicine; Visit Provider Family Medicine | DX: D50.9 Iron deficiency anemia, unspecified (principal) | CPT/HCPCS: 82728; 83550 ==

== ENCOUNTER 2025-02-26 08:43 | Emergency (ER) | payer MEDICARE, MEDICAID, SELFPAY ==
--- OUTSIDE RECORDS SUMMARY | 2025-02-26 08:49 | XMS_ITS | Encounter Summary ---
Author Organization [facility] Address [address] [place] [address] Care Team Providers Care Operations Logistics Analyst Name Role Phone Dennis Regalado MD Primary Care Provider [phone] Encounter Details Date Type Department Care Team (Latest Contact Info) Description 03/12/2005 Outpatient Historical [facility] Devan Marlon [address] [place] [address] Shubham Flores MD NO ADDRESS ON FILE Excessive menstruation (Primary Dx); ABNORMAL FINDINGS- ORGANS Social History Tobacco Use Types Packs/Day Years Used Date Smoking Tobacco: Never Assessed Comments Unknown Sex and Gender Information Value Date Recorded Sex Assigned at Not on file 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
--- OUTSIDE RECORDS SUMMARY | 2025-02-26 08:49 | XMS_ITS | Encounter Summary ---
Author Organization [facility] Address [address] [place] [address] Care Team Providers Care Reimbursement Representative Name Role Phone Dennis Regalado MD Primary Care Provider [phone] Encounter Details Date Type Department Care Team (Latest Contact Info) Description 05/07/2005 Outpatient Historical [facility] Marlon [address] [place] [address] Shubham Flores MD NO ADDRESS ON FILE PREOP EXAM OTHER SPECIFIED (Primary Dx); POSTMENOPAUSAL BLEEDING Social History Tobacco Use Types Packs/Day Years Used Date Smoking Tobacco: Never Assessed Comments Unknown Sex and Gender Information Value Date Recorded Sex Assigned at Not on file 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
--- OUTSIDE RECORDS SUMMARY | 2025-02-26 08:49 | XMS_ITS | Encounter Summary ---
Author Organization [facility] Address [address] [place] [address] Care Team Providers Care Program Coordinator For Residence Life Name Role Phone Dennis Regalado MD Primary Care Provider [phone] Encounter Details Date Type Department Care Team (Latest Contact Info) Description 05/07/2005 Outpatient Historical [facility] [address] [place] [address] Shubham Flores MD NO ADDRESS ON FILE PREOP EXAM OTHER SPECIFIED (Primary Dx) Social History Tobacco Use Types Packs/Day Years Used Date Smoking Tobacco: Never Assessed Comments Unknown Sex and Gender Information Value Date Recorded Sex Assigned at Not on file 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 [facility] has changed the methodology for ThCG, and with this change the reference range has changed from 0-5.0 mIU/ml to 0-10.0 mIU/ml. ----- ----- Total HCG levels between 10 mIU/mL and 25 mIU/mL may be indicative of early but need to be correlated with other clinical findings. HCG ranges during normal , as reported by the roving machine operator, are summarized as follows: Gestational Age Expected hCG Values (mIU/ml) 0.2-1 Weeks 5 - 50 1-2 Weeks 50 - 500 2-3 Weeks 100 - 5,000 3-4 Weeks 1,000 - 50,000 5-6 Weeks 10,000 - 100,000 6-8 Weeks 15,000 - 200,000 2-3 Months 10,000 - 100,000 05/07/2005 11:5 5 AM CDT us Shubham Flores MD CHEMISTRY ORDERABLES Final Res ult INTERFACE SYSTEM Refer to clinic/hospital department * (ABNORMAL) CBC WITHOUT DIFFERENTIAL (05/07/2005 11:55 AM CDT) WBC 10.5 4.8 - 10.8 K/ul INTERFACE SYSTEM RBC 4.34 4.20 - 5.40 Mil/ul INTERFACE SYSTEM HEMOGLOBIN 13.2 12.0 - 16.0 g/dL INTERFACE SYSTEM HEMATOCRIT 40.7 36.0 - 46.0 % INTERFACE SYSTEM MCV 93.8 84.0 - 103.0 Fl INTERFACE SYSTEM MCH 30.4 27.0 - 34.0 pg INTERFACE SYSTEM MCHC 32.4 30.0 - 35.0 g/dL INTERFACE SYSTEM RDW 13.4 11.0 - 14.5 % INTERFACE SYSTEM PLATELETS 368 140 - 440 K/ul INTERFACE SYSTEM MPV 9.8 8.9 - 12.8 Fl INTERFACE SYSTEM NEUTROPHILS 71.0 42.2 - 75.2 % INTERFACE SYSTEM LYMPHOCYTES 16.4(L) 24.0 - 44.0 % INTERFACE SYSTEM MONOCYTES 7.2 2.0 - 10.0 % INTERFACE SYSTEM EOSINOPHILS 4.8 0.0 - 7.0 % INTERFACE SYSTEM BASOPHILS 0.6 0.0 - 1.0 % INTERFACE SYSTEM NEUTROPHIL ABSOLUTE 7.5 2.0 - 8.0 K/uL INTERFACE SYSTEM LYMPHOCYTE ABSOLUTE 1.7 1.2 - 4.0 K/ul INTERFACE SYSTEM MONOCYTE ABSOLUTE 0.8(H) 0.1 - 0.6 K/ul INTERFACE SYSTEM EOSINOPHIL ABSOLUTE 0.5 0.0 - 0.7 K/ul INTERFACE SYSTEM BASOPHILS ABSOLUTE 0.1 0.0 - 0.2 K/ul INTERFACE SYSTEM 05/07/2005 11:5 5 AM CDT us Shubham Flores MD HEMATOLOGY ORDERABLES Final Re sult INTERFACE SYSTEM Refer to clinic/hospital department documented in this encounter Visit Diagnoses Diagnosis Other specified pre-operative examination- Primary documented in this encounter Care Teams Program Coordinator For Residence Life Relationship Specialty Start Date End Date Dennis Regalado MD [address] [place] [id number] PCP - General 05/13/05 documented as of this encounter
--- OUTSIDE RECORDS SUMMARY | 2025-02-26 08:50 | XMS_ITS | Encounter Summary ---
Author Organization [facility] Address [address] [place] [address] Care Team Providers Care Merchandise Flow Team Leader Name Role Phone Dennis Regalado MD Primary Care Provider [phone] Encounter Details Date Type Department Care Team (Late st Contact Info) Description 09/23/2007 Outpatient Historical [facility] [address] [place] [address] Shubham Flores MD NO ADDRESS ON FILE Social History Tobacco Use Types Packs/Day Years Used Date Smoking Tobacco: Never Assessed Comments Unknown Sex and Gender Information Value Date Recorded Sex Assigned at Not on file 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
--- OUTSIDE RECORDS SUMMARY | 2025-02-26 08:50 | XMS_ITS | Patient Health Record ---
Author Organization [facility] Address [address] [place], [place] [id number] Care Team Providers Care Footwear Production Machine Operator Name Role Phone Dennis Regalado MD Primary Care Provider Deonte Craven MD, Curtis Unavailable [phone] Allergies Allergen (clinical drug ingredient) Drug/Non Drug Allergy documented on EMR Reaction Allergy Type Onset Date Status trazodone rash Drug Allergy Active Reason For Referral Reason Chronic back pain Diagnosis 1 Other chronic pain ( G89.29) Referring Provider First Name Dennis Referring Provider Last Name Fabricio Referring Provider Speciality Family Pra ctice Referred Organization [facility] Referred Provider Curtis Craven Referred Address [address], [id number], Referred Provider Specialty Pain Managem ent General Notes Natalie Harris 11:55:09 AM >Sent for insurance verification., Daija Khanna 05/06/2024 01:10:06 PM >ACTIVE NO COPAYSteven Danielle 05/10/2024 12:42:50 PM >Phone no longer in service. Mailed letter. Referral Priority Routine Medications Medication SIG (Take, Route, Frequency, Duration) Notes Start Date End Date Status DOK sodium 100 mg 2 cap(s) orally 2 ti mes a day Active melatonin 3 mg 1-2 tab(s) orally at bedtime Active hydrOXYzine hydrochloride 50 mg 1 tab orally at bedtime Acti ve clonazePAM 1 mg 1 tab orally 4 times a day Active aspirin 81 mg 1 tab orally once a day Active DULoxetine 30 mg 1 cap orally once a day Active acetaminophen-hydrocodone 325 mg-10 mg 1 tab po orally QID prn pain Active Metoprolol Tartrate 50 mg 1 tab orally 2 times a day Active Toviaz 8 mg 1 tab orally once a day, at bedtime Active pantoprazole 20 mg 1 tab orally 2 times a day Active ondansetron 4 mg 1 tab orally 2 times a day, as needed Active Social History Tobacco Use: Social History Observation Description Date Details (start date - stop date) Never Smoker NA - NA alcohol Question Answer Notes Did you have a drink containing alcohol in the p ast year? No Points 0 Interpretation Negative Tobacco use: Question Answer Notes : nonsmoker Problems Problem Type SNOMED Code ICD Code Onset Dates Problem Status W/U Status Risk Notes Problem Low back pain (871473620) Low back pain (M54.5) Active confirmed Problem Lumbosacral spondylosis without myelopathy (76936240) Spondylosis without myelopathy or radiculopathy, lumbar region (M47.816) Active confirmed Problem Anxiety disorder (079058800) Other specified anxiety disorders (F41.8) Active confirmed Problem Hypersomnia (76680912) Hypersomnia, unspecified (G47.10) Active confirmed Problem Other chronic pain (G89.29) Active confirmed Problem Spinal stenosis of lumbar region (98151129) Spinal stenosis, lumbar region (M48.06) Active confirmed Problem Long-term current use of drug therapy (059575831) Other halfway (current) drug therapy (Z79.899) Active confirmed Plan Of Treatment No Information Insurance Providers Payer Name Payer Address Payer Phone Subscriber Number Group Number Insured Name Patient Relationship to Insured Coverage Start Date Coverage End Date [employer] MED[employer]ARE ADVANTAGE PLAN [address] [place] [address] [id number] Supriya Rivera Self - patient is the insured [place] [address] [place] [address] [id number] Supriya Rivera Self - patient is the insured Medical (General) History Medical History History ICD Code Degenerative disc disease, lumbar Low back pain Spinal stenosis Arthritis of the spine Carpel tunnel syndrome, right Coccydynia Palpitations Hyperlipidemia Insomnia Depression Anxiety Hyperglycemia Neuropathy Hypersomnia Bipolar affective disorder, depression Irritable bowel syndrome Hypertension Neck pain Shoulder pain, right Surgical History Surgery Date(Month/Year) Dilation and curettage, 2002 Colonoscopy, 09/2008, 2010 Knee surgery, [facility] , 2013 Hospitalization History Reason Date(Month/Year) Chest pains, [facility]
--- OUTSIDE RECORDS SUMMARY | 2025-02-26 08:50 | XMS_ITS | Encounter Summary ---
Author Organization [facility] Address [address] [place] [address] Care Team Providers Care Beveling Machine Operator Name Role Phone Dennis Regalado MD Primary Care Provider [phone] Reason for Visit * Reason Onset Date Comments Results 02/14/2025 Encounter Details Date Type Department Care Team (Late st Contact Info) Description 02/14/2025 Results Follow-Up [facility] [place] [address] [place] [address] [place], October, [facility] [address] [place] [address] LIPID PANEL, HEMOGLOBIN A1C, TSH, Additional followed-up results: 3 Social History Tobacco Use Types Packs/Day Years Used Date Smoking Tobacco: Never Passive Smoke Exposure: Never Smokeless Tobacco: Never Alcohol Use Standard Drinks/Week Comments Never 0 (1 standard drink = 0.6 oz pur e alcohol) Comments Unknown Sex and Gender Information Value Date Recorded Sex Assigned at Not on file Legal Sex Female 2:39 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 Voiced understanding. [facility] called and Iron test added. Pt said she is not going to be coming back to [facility]. Stated it was too far to drive andshe is needing a provider that can prescribe her medication. Lyric BOO * Telephone Encounter - Lyric Emerson LPN - 02/14/2025 12:05 PM CDT ----- Message from Tegan Tayla sent at 02/14/2025 11:50 AM CDT ----- Please call [facility] and add iron. A1c is 5.9% which is in the prediabetes range. Kidney function and liver function is normal. She is slightly anemic. Let her know I am adding an iron to the labs she already had drawn to make sure she isn't deficient. TSH is normal. ----- Message ----- From: Nolberto Modi Incoming [facility] Results Sent: 02/14/2025 6:34 AM CDT To: MARANDA Ahuja documented in this encounter Plan of Treatment Upcoming Encounters Date Type Department Care Team (Late st Contact Info) Description 08/16/2025 11:00 AM CHIPS SCREEN TENDER Office Visit [facility] [address] [place] [address] Collin Foley FNP [address] [place] [phone] documented as of this encounter Procedures Procedure Name Priority Date/Time Associated Diagnosis Comments IRON, TIBC, AND PERCENT SATURATION Routine 02/13/2025 12:00 AM CDT Anemia, unspecified type documented in this encounter Results * (ABNORMAL) IRON, TIBC, AND PERCENT SATURATION (02/13/2025 12:00 AM CDT) IRON 48 45 - 160 mcg/dL [facility] TIBC 430 250 - 450 mcg/dL (calc) [facility] IRON % SATURATION 11(L) 16 - 45 % (calc) [facility] Comment: Test Performed at: [facility] [address] [id number] Teresa Erickson MD Blood 02/13/2025 02/14/2025 1:2 1 PM CDT October EXPERIMENTAL MECHANIC ELECTRICAL CHEMISTRY ORDERABLES Final Resul t [facility] [phone] [facility] [address] [place] [address] documented in this encounter Visit Diagnoses Diagnosis Anemia, unspecified type- Primary documented in this encounter Care Teams Beveling Machine Operator Relationship Specialty Start Date End Date Dennis Regalado MD [address] [place] [id number] PCP - General 05/13/05 documented as of this encounter
--- OUTSIDE RECORDS SUMMARY | 2025-02-26 08:50 | XMS_ITS | Encounter Summary ---
Author Organization [facility] Address [address] [place] [address] Care Team Providers Care Frame Table Operator Name Role Phone Dennis Regalado MD Primary Care Provider [phone] Encounter Details Date Type Department Care Team (Late st Contact Info) Description 08/26/2005 Outpatient Historical [facility] [address] [place] [address] Shubham Flores MD NO ADDRESS ON FILE Social History Tobacco Use Types Packs/Day Years Used Date Smoking Tobacco: Never Assessed Comments Unknown Sex and Gender Information Value Date Recorded Sex Assigned at Not on file 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
--- OUTSIDE RECORDS SUMMARY | 2025-02-26 08:50 | XMS_ITS | Clinical Summary ---
Author Organization [facility] Address [address] Stanley: [place] [address] Care Team Providers Care Manager Film Name Role Phone Dennis Regalado MD Primary Care Provider [phone] Allergies Active Allergy Reactions Criticality Noted Date Comments Trazodone Rash Low 02/13/2025 Medications metoprolol tartrate (LOPRESSOR) 50 mg tablet Take 50 mg by mouth 2 times daily. Active aspirin (ECOTRIN EC) 81 mg Tablet, Delayed Release (E.C.) Take 81 mg by mouth daily. Active clonazePAM (KlonoPIN) 1 mg tablet Take 1 mg by mouth 2 times daily. Active pantoprazole (PROTONIX) 40 mg Tablet, Delayed Release (E.C.)Indication s:Gastroesophage al reflux disease, unspecified whether esophagitis present Take 1 Tablet (40 mg) by mouth 2 times daily. 60 Tablet 3 5 Active DULoxetine (CYMBALTA) 30 mg Capsule, Delayed Release(E.C.)Ind ications:Fibromy algia,Generalize d anxiety disorder Take 1 Capsule (30 mg) by mouth daily. 90 Capsule 2 5 Active DULoxetine (CYMBALTA) 30 mg Capsule, Delayed Release(E.C.) Take 30 mg by mouth 3 times daily. 02/14/20 25 Discontinu ed(Reorder ) pantoprazole (PROTONIX) 40 mg Tablet, Delayed Release (E.C.) Take 40 mg by mouth 2 times daily. 02/14/20 25 Discontinu ed(Reorder ) DULoxetine (CYMBALTA) 30 mg Capsule, Delayed Release(E.C.)Ind ications:Fibromy algia,Generalize d anxiety disorder Take 1 Capsule (30 mg) by mouth 3 times daily. 90 Capsule 3 5 02/15/20 25 Discontinu ed(Dose/fo rm adjustment ) Active Problems Problem Noted Date Diagnosed Date Type 2 diabetes mellitus wit h hyperglycemia, without long-term current use of insulin 02/13/2025 Fibromyalgia 02/13/2025 Essential hypertension 10/10/2022 Encounters Date Type Department Care Team Description 02/15/2025 External Device Data ST[facility] ABSTRACTION Provider, Abstract 02/14/2025 External Device Data [facility] ABSTRACTION Provider, Abstract 02/14/2025 External Device Data [facility] ABSTRACTION Provider, Abstract 02/14/2025 Orders Only [facility] [address] [place] [address] BourneOctober, Fibromyalgia (Primary Dx); Generalized anxiety disorder 02/14/2025 Telephone [facility] [address] [place] [address] BourneOctober, PRESS MANAGER Provider Call 02/14/2025 Results Follow-Up [facility] [address] [place] [address] BourneOctober, LIPID PANEL, HEMOGLOBIN A1C, TSH, Additional followed-up results: 3 02/13/2025 9:00 AM CDT Office Visit [facility] [address] [place] [address] BourneOctober, PRESS MANAGER Encounter to establish care (Primary Dx); Encounter for colorectal cancer screening using Cologuard test; Type 2 diabetes mellitus with hyperglycemia, without long-term current use of insulin ([facility]); Essential hypertension; Fibromyalgia; Gastroesophageal reflux disease, unspecified whether esophagitis present; Generalized anxiety disorder from Last 3 Months Immunizations Immunization Administration Dates Next Due (TDVAX)(7 YRS UP) TETANUS AN D DIPHTHERIA TOXOIDS, ADSORBED (2 LF OF TETANUS TOXOID AND 2 LF OF DIPHTHERIA TOXOID), 0.5ML (PF), IM 09/18/1999,08/04/1997 Social History Tobacco Use Types Packs/Day Years Used Date Smoking Tobacco: Never Passive Smoke Exposure: Never Smokeless Tobacco: Never Tobacco Cessation:Counseling Given: No Alcohol Use Standard Drinks/Week Comments Never 0 (1 standard drink = 0.6 oz pur e alcohol) Comments Unknown Sex and Gender Information Value Date Recorded Sex Assigned at Not on file Legal Sex Female 2:39 AM WOMEN'S HEALTH CARE NURSE PRACTITIONER Gender Identity Not on file Sexual Orientation Not on file Last Filed Vital Signs Vital Sign Reading Time Taken Comments Blood Pressure 126/74 02/13/2025 9:01 AM CDT Pulse 71 02/13/2025 9:01 AM CDT Temperature 36.6 C (97.9 F) 02/13/2025 9:01 AM CDT Respiratory Rate 18 02/13/2025 9:01 AM CDT Oxygen Saturation 96% 02/13/2025 9:01 AM CDT Inhaled Oxygen Concentration - - Weight 92.1 kg (203 lb) 02/13/2025 9:01 AM CDT Height 167.6 cm (5' 6 ) 02/13/2025 9:01 AM CDT Body Mass Index 32.77 02/13/2025 9:01 AM CDT Plan of Treatment Upcoming Encounters Date Type Department Care Team (Late st Contact Info) Description 08/16/2025 11:00 AM WOMEN'S HEALTH CARE NURSE PRACTITIONER Office Visit [facility] [place] [address] [place] [phone] Collin Foley, [facility] [address] [place] [address] Health Maintenance Due Date Last Done Comments DIABETES ANNUAL FOOT EXAM 1970 DIABETES ANNUAL RETINAL EXAM 1970 DIABETES MICROALBUMIN ANNUAL SCREEN 1970 BREAST CANCER SCREENING 1992 COLORECTAL SCREENING 1997 Colorectal Cancer Screening 1997 FIT-DNA Q 3 years 1997 FIT/FOBT Q 1 year 1997 Flex Sig/CT Colonography Q 5 years 1997 ZOSTER VACCINE (1 of 2) 2002 OSTEOPOROSIS SCREENING 2017 COVID-19 Vaccine (2023-2 5 season) 2024 03/22/2021 Medicare [place] ([place]) Preventative Visit/Annual Wellness Visit 07/13/2024 INFLUENZA VACCINE (#1) 2025 2, 09/10/2018, 09/10/2018, Additional history exists DIABETES HBA1C Q 6 MONTHS 08/16/2025 02/13/2025, LDL CHOLESTEROL ANNUAL 02/13/2026 02/13/2025 RSV VACCINE (60+ or ) (1 - 1-dose 75+ series) 2027 DTAP/TDAP/TD VACCINES (2 - T d or Tdap) 04/27/2029 04/27/2019, 09/18/1999, 08/04/1997 PNEUMOCOCCAL VACCINE 50+ YEARS Completed 0 09/10/2018, 08/31/2017, 04/22/2013 Procedures Procedure Name Priority Date/Time Associated Diagnosis Comments CBC WITH DIFFERENTIAL Routine 02/13/2025 9:30 AM CDT Type 2 diabetes mellitus with hyperglycemia, without long-term current use of insulin ([facility]) Essential hypertension COMPREHENSIVE METABOLIC PANEL Routine 02/13/2025 9:30 AM CDT Type 2 diabetes mellitus with hyperglycemia, without long-term current use of insulin ([facility]) Essential hypertension TSH Routine 02/13/2025 9:30 AM CDT Type 2 diabetes mellitus with hyperglycemia, without long-term current use of insulin ([facility]) Essential hypertension HEMOGLOBIN A1C Routine 02/13/2025 9:30 AM CDT Type 2 diabetes mellitus with hyperglycemia, without long-term current use of insulin ([facility]) LIPID PANEL Routine 02/13/2025 9:30 AM CDT Type 2 diabetes mellitus with hyperglycemia, without long-term current use of insulin ([facility]) Essential hypertension IRON, TIBC, AND PERCENT SATURATION Routine 02/13/2025 12:00 AM CDT Anemia, unspecified type from Last 3 Months Results * (ABNORMAL) CBC WITH DIFFERENTIAL (02/13/2025 9:30 AM CDT) [facility] WBC 8.1 3.8 - 10.8 Thousand/u L [facility] RBC 4.54 3.80 - 5.10 Million/uL [facility] HEMOGLOBIN 11.5(L) 11.7 - 15.5 g/dL [facility] HEMATOCRIT 38.4 35.0 - 45.0 % [facility] MCV 84.6 80.0 - 100.0 fL [facility] MCH 25.3(L) 27.0 - 33.0 pg [facility] MCHC 29.9(L) 32.0 - 36.0 g/dL [facility] Comment: For adults, a slight decrease in the calculated MCHC value (in the range of 30 to 32 g/dL) is most likely not clinically significant; however, it should be interpreted with caution in correlation with other red cell parameters and the patient's clinical condition. RDW 17.7(H) 11.0 - 15.0 % [facility] PLATELETS 368 140 - 400 Thousand/u L [facility] MPV 10.2 7.5 - 12.5 fL [facility] NEUTROPHIL ABSOLUTE 5,605 1,500 - 7,800 cells/uL [facility] LYMPHOCYTE ABSOLUTE 1,636 850 - 3,900 cells/uL [facility] MONOCYTE ABSOLUTE 680 200 - 950 cells/uL [facility] EOSINOPHIL ABSOLUTE 122 15 - 500 cells/uL [facility] BASOPHILS ABSOLUTE 57 0 - 200 cells/uL [facility] NEUTROPHIL 69.2 % [facility] LYMPHOCYTES 20.2 % [facility] MONOCYTE 8.4 % [facility] EOSINOPHILS 1.5 % [facility] BASOPHILS 0.7 % [facility] Comment: Test Performed at: [facility] [address] [address] [address] Teresa Erickson MD Blood 02/13/2025 9:30 AM CDT 02/14/2025 3:[address] [facility] HEMATOLOGY ORDERABLES Final Resu lt Performing Organization Address [facility]/ZIP Co de Phone Number [facility] [phone] [facility] [address] [address] * TSH (02/13/2025 9:30 AM CDT) [facility] TSH 1.78 0.40 - 4.50 mIU/L [facility] Comment: Test Performed at: [facility] [address] [place] [address], [place] [address] Teresa Erickson MD Blood 02/13/2025 9:30 AM CDT 02/14/2025 3:[address] [facility] CHEMISTRY ORDERABLES Final Resul t Performing Organization Address [facility] Co de Phone Number [facility] [phone] [facility] [address] [place] [address] [place] [address] * (ABNORMAL) HEMOGLOBIN A1C (02/13/2025 9:30 AM CDT) [facility] HEMOGLOBIN A1C 5.9(H) <5.7 % [facility] Comment: For someone without known diabetes, a hemoglobin A1c value between 5.7% and 6.4% is consistent with prediabetes and should be confirmed with a follow-up test. For someone with known diabetes, a value <7% indicates that their diabetes is well controlled. A1c targets should be individualized based on duration of diabetes, age, comorbid conditions, and other considerations. This assay result is consistent with an increased risk of diabetes. Currently, no consensus exists regarding use of hemoglobin A1c for diagnosis of diabetes for children. ESTIMATED AVERAGE GLUCOSE (MG/DL) 123 mg/dL [facility] ESTIMATED AVERAGE GLUCOSE (MMOL/L) 6.8 mmol/L [facility] Comment: Test Performed at: [facility] [address] [place] [address] Teresa Erickson MD Blood 02/13/2025 9:30 AM CDT 02/14/2025 3:50 AM CDT October [facility] CHEMISTRY ORDERABLES Final Resul t [facility] [phone] [facility] [address] [place] [address] * (ABNORMAL) LIPID PANEL (02/13/2025 9:30 AM CDT) CHOLESTEROL 178 <200 mg/dL [facility] HDL 53 > OR = 50 mg/dL [facility] TRIGLYCERIDE 117 <150 mg/dL [facility] LDL CALCULATED 104(H) mg/dL (calc) [facility] Comment: Reference range: <100 Desirable range <100 mg/dL for primary prevention; <70 mg/dL for patients with CHD or diabetic patients with > or = 2 CHD risk factors. LDL-C is now calculated using the Fabricio-Gary calculation, which is a validated novel method providing better accuracy than the Friedewald equation in the estimation of LDL-C. Fabricio SS et al. DEN. 2013;310(19): 0775-9698 (http://education.[employer] labs/faq/RMV347) CHOL/HDL RATIO 3.4 <5.0 (calc) [facility] NON-HDL CHOLESTEROL 125 <130 mg/dL (calc) [facility] Comment: For patients with diabetes plus 1 major ASCVD risk factor, treating to a non-HDL-C goal of <100 mg/dL (LDL-C of <70 mg/dL) is considered a therapeutic option. Test Performed at: [facility] [address] [place] [address] Teresa Erickson MD Blood 02/13/2025 9:30 AM CDT 02/14/2025 3:50 AM CDT October [facility] CHEMISTRY ORDERABLES Final Resul t [facility] [phone] [facility] [address] [address] [address] * (ABNORMAL) COMPREHENSIVE METABOLIC PANEL (02/13/2025 9:30 AM CDT) GLUCOSE 124(H) 65 - 99 mg/dL [facility] Comment: Fasting reference interval For someone without known diabetes, a glucose value between 100 and 125 mg/dL is consistent with prediabetes and should be confirmed with a follow-up test. BUN 15 7 - 25 mg/dL [facility] CREATININE 0.97 0.60 - 1.00 mg/dL [facility] GFR 62 > OR = 60 mL/min/1. 73m2 [facility] BUN/CREAT RATIO SEE NOTE: 6 - 22 (calc) [facility] Comment: Not Reported: BUN and Creatinine are within reference range. SODIUM 137 135 - 146 mmol/L [facility] POTASSIUM 4.1 3.5 - 5.3 mmol/L [facility] CHLORIDE 106 98 - 110 mmol/L [facility] CO2 27 20 - 32 mmol/L [facility] CALCIUM 9.8 8.6 - 10.4 mg/dL [facility] TOTAL PROTEIN 7.1 6.1 - 8.1 g/dL [facility] ALBUMIN 4.2 3.6 - 5.1 g/dL [facility] GLOBULIN 2.9 1.9 - 3.7 g/dL (calc) [facility] ALBUMIN/GLOBULIN RATIO 1.4 1.0 - 2.5 (calc) [facility] BILIRUBIN TOTAL 0.6 0.2 - 1.2 mg/dL [facility] ALKALINE PHOSPHATASE 78 37 - 153 U/L [facility] AST 20 10 - 35 U/L [facility] ALT 18 6 - 29 U/L [facility] Comment: Test Performed at: [facility] [address] [address] [address] Teresa Erickson MD Blood 02/13/2025 9:30 AM CDT 02/14/2025 3:50 AM CDT [facility] Final Resul t Performing Organization Address [facility]/ZIP Co de Phone Number [facility] [phone] [facility] [address] [place] [address] * (ABNORMAL) IRON, TIBC, AND PERCENT SATURATION (02/13/2025 12:00 AM CDT) IRON 48 45 - 160 mcg/dL [facility] TIBC 430 250 - 450 mcg/dL (calc) [facility] IRON % SATURATION 11(L) 16 - 45 % (calc) [facility] Comment: Test Performed at: [facility] [address] [place] [address] Teresa Erickson MD Blood 02/13/2025 02/14/2025 1:2 1 PM CDT [facility] CHEMI[facility] ORDERABLES Final Resul t Performing Organization Address [facility] Co de Phone Number [facility] [phone] [facility] [address] [place] [address] from Last 3 Months Insurance [id number] [place] [address] MEDICAID [place] [facility] MCR Care Teams Manager Film Relationship Specialty Start Date End Date Dennis Regalado MD [address] [address] PCP - General 05/13/05
--- OUTSIDE RECORDS SUMMARY | 2025-02-26 08:50 | XMS_ITS | Encounter Summary ---
Author Organization [facility] Address [address] [place] [address] Care Team Providers Care Steel Pourer Helper Name Role Phone Dennis Regalado MD Primary Care Provider [phone] Encounter Details Date Type Department Care Team (Latest Contact Info) Description 05/13/2005 Outpatient Historical [facility] Operating Room [address] [place] [phone] Shubham Flores MD NO ADDRESS ON FILE ENDOMETRIAL HYPERPLASIA NOS (Primary Dx) Social History Tobacco Use Types Packs/Day Years Used Date Smoking Tobacco: Never Assessed Comments Unknown Sex and Gender Information Value Date Recorded Sex Assigned at Not on file Legal 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
--- OUTSIDE RECORDS SUMMARY | 2025-02-26 08:50 | XMS_ITS | Encounter Summary ---
Author Organization [facility] Address [address] [place] [address] Care Team Providers Care Automobile Body Repairer Name Role Phone Dennis Regalado MD Primary Care Provider [phone] Encounter Details Date Type Department Care Team (Late st Contact Info) Description 09/06/2007 Outpatient Historical [facility] [facility]an Maxwell [address] [place] [address] Shubham Flores MD NO ADDRESS ON FILE Social History Tobacco Use Types Packs/Day Years Used Date Smoking Tobacco: Never Assessed Comments Unknown Sex and Gender Information Value Date Recorded Sex Assigned at Not on file Legal Sex Female 4:42 AM PROGRAM DIRECTOR SUBSTANCE ABUSE Gender Identity Not on file Sexual Orientation Not on file documented as of this encounter Progress Notes * Shubham Flores MD - 09/06/2007 12:00 AM CST Patient Name: Enriqueta Rivera DOS: 09/06/2007 : 1950 SUBJECTIVE: Enriqueta Rivera returns today for her checkup. She lost her insurance and has regained it and thus comes in for a followup. Her D&C in May of 2005 showed endometrial simple hyperplasia. An ultrasound had shown ovarian cysts. PHYSICAL EXAMINATION: PELVIC: BSU normal. Vagina pink. Cervix normal. Uterus axial. Endometrial biopsy done. Tissue sent.Adnexa - no masses. IMPRESSION: 1. History of simple endometrial hyperplasia. 2. History of ovarian cyst. PLAN: Endometrial biopsy done today. Pelvic ultrasound will be done to followup on ovarian cyst. Recheck 6 months. Weight 204, blood pressure 108/62. Shubham Flores M.D. DEAL ARCHITECT - Rigoberto Hartman Maxwell Electronically Signed by Shubham Flores M.D. 09/13/2007 07:54 , A, 635 Document #: [id number] cc: RAM DIRECTOR SUBSTANCE ABUSE documented in this encounter Plan of Treatment Not on file documented as of this encounter Visit Diagnoses Not on filedocumented in this encounter Care Teams Automobile Body Repairer Relationship Specialty Start Date End Date Dennis Regalado MD [address] [place] [address] PCP - General 05/13/05 documented as of this encounter
--- OUTSIDE RECORDS SUMMARY | 2025-02-26 08:50 | XMS_ITS | Clinical Summary ---
Author Organization [facility] Address [address] [place] [address] Phone Care Team Providers Care Detective Precinct Name Role Phone Dennis Regalado MD Primary Care Provider [phone] Immunizations Immunization Administration Dates Next Due (TDVAX)(7 YRS UP) TETANUS AN D DIPHTHERIA TOXOIDS, ADSORBED (2 LF OF TETANUS TOXOID AND 2 LF OF DIPHTHERIA TOXOID), 0.5ML (PF), IM 09/18/1999,08/04/1997 Social History Tobacco Use Types Packs/Day Years Used Date Smoking Tobacco: Never Assessed Comments Unknown Sex and Gender Information Value Date Recorded Sex Assigned at Not on file Legal Sex Female 4:42 AM GRAIN SHOVELER Gender Identity Not on file Sexual Orientation Not on file Plan of Treatment Health Maintenance Due Date Last Done Comments BREAST CANCER SCREENING 1992 COLORECTAL SCREENING 1997 Colorectal Cancer Screening 1997 FIT-DNA Q 3 years 1997 FIT/FOBT Q 1 year 1997 Flex Sig/CT Colonography Q 5 years 1997 DTAP/TDAP/TD VACCINES (1 - Tdap) 09/19/1999 09/18/19 00, 08/04/1997 PNEUMOCOCCAL VACCINE 50+ YEA RS (1 of 1 - PCV) 2002 ZOSTER VACCINE (1 of 2) 2002 OSTEOPOROSIS SCREENING 2017 INFLUENZA VACCINE (#1) 2025 RSV VACCINE (60+ or ) (1 - 1-dose 75+ series) 2027 Insurance MEDICAID [place] Care Teams Detective Precinct Relationship Specialty Start Date End Date Dennis Regalado MD [address] [address] PCP - General 05/13/05
--- OUTSIDE RECORDS SUMMARY | 2025-02-26 08:50 | XMS_ITS | Encounter Summary ---
Author Organization [facility] Address [address] [place] [address] Care Team Providers Care Job Coach Name Role Phone Dennis Regalado MD Primary Care Provider Encounter Details Date Type Department Care Team (Late st Contact Info) Description 09/07/2007 Outpatient Historical [facility] [address] [place] [address] Shubham Flores MD NO ADDRESS ON FILE Social History Tobacco Use Types Packs/Day Years Used Date Smoking Tobacco: Never Assessed Comments Unknown Sex and Gender Information Value Date Recorded Sex Assigned at Not on file Legal Sex Female 4:42 AM PHYSICIAN INTENSIVIST Gender Identity Not on file Sexual Orientation Not on file documented as of this encounter Plan of Treatment Not on file documented as of this encounter Procedures Procedure Name Priority Date/Time Associated Diagnosis Comments PATHOLOGY Routine 09/06/2007 9:04 AM PHYSICIAN INTENSIVIST documented in this encounter Results * PATHOLOGY (09/06/2007 9:04 AM PHYSICIAN INTENSIVIST) PATHOLOGY/CYT OLOGY REPORT [facility] Path[facility] Dept [address] [facility] [address] Patient: ENRIQUETA RHOADES Accn No: [id number] Collected: 09/06/2007 9:04:00 AM SURGICAL PATHOLOGY FINAL REPORT Diagnosis A. Endometrium, biopsy - proliferative endometrium with glandular and stromal breakdown. Bronson Fritz MD (Electronically signed by) Verified: 09/08/07 PKT/CEP Clinical Information None. Specimen Source AEndometrium Microscopic Description Microscopic examination was performed. Gross Description Part A. Submitted in a container of formalin labelled Rhoades, EMB is an aggregate of pinkish-hanson soft tissue measuring 1.1 x 0.5 x 0.2 cm. The specimen is submitted entirely in A1. DLS/CEP INTERFACE SYSTEM 09/06/2007 9:04 AM PHYSICIAN INTENSIVIST us Shubham Flores MD PATHOLOGY/CYTOLOGY ORDERABLES Final Result INTERFACE SYSTEM Refer to clinic/hospital department documented in this encounter Visit Diagnoses Not on filedocumented in this encounter Care Teams Job Coach Relationship Specialty Start Date End Date Dennis Regalado MD [address] [place] [address] PCP - General 05/13/05 documented as of this encounter
--- OUTSIDE RECORDS SUMMARY | 2025-02-26 08:50 | XMS_ITS | Encounter Summary ---
Author Organization [facility] Address [address] [place] [address] Care Team Providers Care Manager Mac Name Role Phone Dennis Regalado MD Primary Care Provider [phone] Encounter Details Date Type Department Care Team (Latest Contact Info) Description 05/21/2005 Outpatient Historical [facility] [address] [place] [address] Shubham Flores MD NO ADDRESS ON FILE SURGERY FOLLOWUP NOS (Primary Dx) Social History Tobacco Use Types Packs/Day Years Used Date Smoking Tobacco: Never Assessed Comments Unknown Sex and Gender Information Value Date Recorded Sex Assigned at Not on file Legal Sex Female 4:42 AM [employer] Gender Identity Not on file Sexual Orientation Not on file documented as of this encounter Plan of Treatment Not on file documented as of this encounter Visit Diagnoses Diagnosis Follow-up examination, following unspecified surgery- Primary documented in this encounter Care Teams Manager Mac Relationship Specialty Start Date End Date Dennis Regalado MD [address] [place] [address] [id number] PCP - General 05/13/05 documented as of this encounter
[2025-02-26 09:01] VITALS: BP 138/56; PULSE 76; RESP 18; TEMP 36.8; O2SAT 97; BMI 32.3
--- NOTE | 2025-02-26 09:10 | W.ED.FEMALGU ---
HPI - Female Genitourinary General: Chief complaint: Urogenital-Female Stated complaint: blood in the urine Time Seen by Provider: 02/26/25 09:00 History of Present Illness: Chief complaint is dark-colored urine with an odor. The patient states that this morning she noticed that her urine was darker and had a odor so she went to get checked out. No burning with urination. Related Data Home Medications ?Medication ?Instructions ?Recorded ?Confirmed aspirin 81 mg tablet,delayed 81 mg PO DAILY 07/08/19 01/27/25 release (Adult Aspirin Regimen) metoprolol tartrate 50 mg tablet 50 mg PO BID 07/08/19 01/27/25 budesonide-formoterol HFA 160 2 puff inhalation BID 07/18/19 01/27/25 mcg-4.5 mcg/actuation aerosol inhaler (Symbicort) pregabalin 75 mg capsule (Lyrica) 75 mg PO BID 07/18/19 01/27/25 quetiapine 100 mg tablet (Seroquel) 400 mg PO .COMPLEX 12/13/20 01/27/25 atorvastatin 10 mg tablet (Lipitor) 10 mg PO DAILY 01/27/25 01/27/25 Previous Rx's ?Medication ?Instructions ?Recorded polyethylene glycol 3350 17 gram 17 g PO DAILY PRN constipation #14 08/30/23 oral powder packet (Miralax) ea clonazepam 0.5 mg tablet 0.5 mg PO BID PRN anxiety #60 tabs 01/27/25 duloxetine 30 mg capsule,delayed 30 mg PO DAILY #90 caps 01/27/25 release sprinkle oxybutynin chloride 10 mg 10 mg PO ONCE #90 tabs 01/27/25 tablet,extended release 24 hr pantoprazole 40 mg tablet,delayed 40 mg PO QAM #90 tabs 01/27/25 release Allergies Allergy/AdvReac Type Severity Reaction Status Date / Time Penicillins Allergy Unknown Verified 01/27/25 08:25 trazodone Allergy ALGY-Rash Verified 01/27/25 08:25 [facility] ED PFSH: Medical History (Updated 02/26/25 @ 10:28 by Marquez Alejandra MD) Diabetic polyneuropathy associated with type 2 diabetes mellitus Stress incontinence Type 2 diabetes mellitus without complication, without long-term current use of insulin Asthma Intervertebral disc disorders with radiculopathy, lumbar region H/O TIA (transient ischemic attack) and stroke Degeneration of intervertebral disc of lumbar region with discogenic back pain Benign essential HTN ELLY (generalized anxiety disorder) Moderate episode of recurrent major depressive disorder Gastroesophageal reflux disease without esophagitis Recurrent urinary tract infection Surgical History S/P right knee surgery S/P D&C (status post dilation and curettage) S/P colonoscopy Family History Sister Stroke mini strokes Hypertension Father Cancer Lung Hypertension Mother Cancer unsure-had to do with the heart Hypertension Brother Hypertension Denies family history of Diabetes Ovarian cyst Clotting disorder Heart disease Chronic kidney disease (CKD) Bleeding disorder Thyroid disease Social History Smoking and tobacco/nicotine status: former use of tobacco/nicotine Substance/Drug Use: never Marital status: Physical Exam Narrative: EXAM NARRATIVE: Alert oriented no acute distress. Normal conjunctiva. Pupils equal and reactive. Moist mucous membranes. Neck is supple. Heart regular rhythm. Lung sounds clear. Abdomen soft nontender no guarding rebound. No CVA tenderness. No tenderness of her back. Extremities warm well-perfused. No calf tenderness or pitting edema. Clear speech. No facial droop. No evident weakness in arms or legs. Extremities nontender. She moves her extremities freely. Course Vital Signs: Vital signs: Vital Signs Temperature 98.2 F 02/26/25 09:01 Pulse Rate 68 02/26/25 10:34 Respiratory Rate 18 02/26/25 09:01 Blood Pressure 154/92 02/26/25 10:34 Pulse Oximetry 97 02/26/25 10:34 Oxygen Delivery Me thod Room Air 02/26/25 10:00 [facility] - Female Medical Decision Making Patient presents complaining that she had some darker colored urine this morning and some abnormal odor to the urine. She denies any trauma or injury. Denies fever headache chest pain shortness of breath back pain abdominal pain vomiting diarrhea. Denies any black or bloody stools. She states she saw her doctor recently was told she was anemic. She states she was told to take iron vitamin and B12. She denies any dysuria or frequency or urgency. Will check CBC CMP and urinalysis. She states she is not on a blood thinner. She denies any liver history problems and does not drink alcohol. Rhabdomyolysis unlikely by history and exam but will also check CK. Liver enzyme elevation considered though less likely by history but will check her liver enzymes. Will check her white count and hemoglobin. No clear significant abnormality on CBC CMP or urinalysis to explain her symptoms. She did not have significant red blood cells in her urine. She did not have significant findings to suggest infection combined with no dysuria. Liver enzymes are not elevated. White count was normal. Hemoglobin is 12. Advised limits of ED evaluation outpatient follow-up and return instructions. Lab Data 02/26/25 09:33 02/26/25 09:33 Laboratory Results WBC 7.78 10^3/uL (3.29-11.43) 02/26/25 09:33 RBC 4.76 10^6/uL (3.85-5.65) 02/26/25 09:33 Hgb 12.00 g/dL (11.27-16.99) 02/26/25 09:33 Hct 38.5 % (36-47) 02/26/25 09:33 MCV 80.9 fl (85-98) L 02/26/25 09:33 MCH 25.2 pg (27-33) L 02/26/25 09:33 MCHC 31.2 g/dL (30-55) 02/26/25 09:33 RDW 21.9 % (12.1-15.1) H 02/26/25 09:33 Plt Count 301 10^3/cmm (157-399) 02/26/25 09:33 MPV 9.8 fL (7.4-10.4) 02/26/25 09:33 Neut % (Auto) 75.1 % 02/26/25 09:33 Lymph % (Auto) 16.2 % 02/26/25 09:33 [place] % (Auto) 6.4 % 02/26/25 09:33 Eos % (Auto) 1.4 % 02/26/25 09:33 Baso % (Auto) 0.6 % 02/26/25 09:33 Neut # (Auto) 5.84 10^3/uL (1.8-7.7) 02/26/25 09:33 Lymph # (Auto) 1.3 10^3/uL (0.8-4.8) 02/26/25 09:33 [place] # (Auto) 0.5 10^3/uL (0.2-0.9) 02/26/25 09:33 Eos # (Auto) 0.1 10^3/uL (0.0-0.8) 02/26/25 09:33 Baso # (Auto) 0.1 10^3/uL (0.0-0.1) 02/26/25 09:33 Nucleated RBC % (auto) 0 % 02/26/25 09:33 Nucleated RBCs # 0.0 /100WBC 02/26/25 09:33 Sodium 142 mmol/L (136-145) 02/26/25 09:33 Potassium 4.3 mmol/L (3.5-5.1) 02/26/25 09:33 Chloride 106 mmol/L (98-107) 02/26/25 09:33 Carbon Dioxide 25 mmol/L (22-29) 02/26/25 09:33 Anion Gap 15.3 (5-19) 02/26/25 09:33 BUN 13 mg/dL (8-23) 02/26/25 09:33 Creatinine 0.8 mg/dL (0.5-0.9) 02/26/25 09:33 GFR Calculation Not Reportable 02/26/25 09:33 Glucose 119 mg/dL (65-115) H 02/26/25 09:33 Calculated Osmolality 295 mOsm/kg (285-295) 02/26/25 09:33 Calcium 9.6 mg/dL (8.5-10.5) 02/26/25 09:33 Total Bilirubin 0.4 mg/dL (0.15-1.2) 02/26/25 09:33 AST 24 U/L (0-32) 02/26/25 09:33 ALT 25 U/L (0-33) 02/26/25 09:33 Alkaline Phosphatase 91 U/L (35-105) 02/26/25 09:33 Creatine Kinase 53 U/L (26-192) 02/26/25 09:33 Total Protein 7.7 g/dL (6.6-8.7) 02/26/25 09:33 Albumin 4.4 g/dL (3.5-5.2) 02/26/25 09:33 Globulin 3.3 g/dL (1.3-4.6) 02/26/25 09:33 Urine Color Yellow (Yellow) 02/26/25 09:52 Urine Appearance Clear (CLEAR) 02/26/25 09:52 Urine pH 5.5 (5-7) 02/26/25 09:52 Ur Specific [place] 1.021 (1.005-1.030) 02/26/25 09:52 Urine Protein Negative (Negative) 02/26/25 09:52 Urine Glucose (UA) Negative (Normal) 02/26/25 09:52 Urine Ketones Trace (Negative) 02/26/25 09:52 Urine Blood Negative (Negative) 02/26/25 09:52 Urine Nitrate Negative (Negative) 02/26/25 09:52 Urine Bilirubin Negative (Negative) 02/26/25 09:52 Urine Urobilinogen 1.0 mg/dL (Negative) 02/26/25 09:52 Ur Leukocyte Esterase 1+ (Negative) A 02/26/25 09:52 Urine RBC 0-4 /hpf (0-2) H 02/26/25 09:52 Urine WBC 5-10 /hpf (0-5) H 02/26/25 09:52 Ur Squamous Epith Cells 5-10 /hpf (0-5) H 02/26/25 09:52 Calcium Oxalate Crystal 15-25 /hpf H 02/26/25 09:52 Amorphous Sediment Not Reportable 02/26/25 09:52 Urine Bacteria 1+ /hpf (NONE) H 02/26/25 09:52 Hyaline Casts 5-10 /lpf H 02/26/25 09:52 Coarse Granular Casts 0-4 /lpf H 02/26/25 09:52 Urine Mucus Trace /hpf 02/26/25 09:52 No radiology studies performed this visit Discharge Plan Discharge Patient Disposition: Home Clinical Impression: Malodorous urine Condition: Stable Prescriptions: No Action metoprolol tartrate 50 mg tablet 50 mg PO BID aspirin [Adult Aspirin Regimen] 81 mg tablet,delayed release (DR/EC) 81 mg PO DAILY pregabalin [Lyrica] 75 mg capsule 75 mg PO BID Symbicort 160-4.5 mcg/actuation HFA aerosol inhaler 2 puff INHALATION BID quetiapine [Seroquel] 100 mg tablet 400 mg PO .COMPLEX Rx Instructions: 400 mg PO at bedtime; atorvastatin [Lipitor] 10 mg tablet 10 mg PO DAILY duloxetine 30 mg capsule, delayed rel sprinkle 30 mg PO DAILY Qty: 90 0RF oxybutynin chloride 10 mg tablet extended release 24hr 10 mg PO ONCE Qty: 90 0RF pantoprazole 40 mg tablet,delayed release (DR/EC) 40 mg PO QAM Qty: 90 0RF clonazepam 0.5 mg tablet 0.5 mg PO BID PRN (Reason: anxiety) Qty: 60 1RF Rx Instructions: Must last 30 days Miralax 17 gram powder in packet 17 g PO DAILY PRN (Reason: constipation) Qty: 14 0RF Discharge Orders: Discharge ED (Routine); Ordered 02/26/25 Ordered By: Marquez Alejandra Referrals: Frances Solomon DO [Primary Care Provider, Family Practice] Patient Instructions: Opioid Safety, Pain Management, Patient Portal & Felice Instructions Activity Restrictions/Additional Instructions: Follow-up on your test results with your doctor. Come back if fever, vomiting, abdominal pain, any worse or concerns. Call your doctor tomorrow for follow-up in the next 1 to 2 weeks. Print Language: Mohawk Coding Level of Care Code ED Automatic Profile Shaper Operator for Ruperto Oro
[2025-02-26 09:45] LABS: Hematocrit 38.5 % (36-47); Hemoglobin 12.00 g/dL (11.27-16.99); Mean Corpuscular HGB Conc 31.2 g/dL (30-55); Mean Corpuscular Hemoglobin 25.2 pg (27-33); Mean Corpuscular Volume 80.9 fl (85-98); Nucleated Red Blood Cells % 0 %; Platelet Count 301 10^3/cmm (157-399); Red Blood Count 4.76 10^6/uL (3.85-5.65); White Blood Count 7.78 10^3/uL (3.29-11.43)
[2025-02-26 10:00] VITALS: BP 134/73; PULSE 62; O2SAT 97
[2025-02-26 10:04] LABS: Glucose Urine UA Negative (Normal); Nitrate Urine Negative (Negative); Specific Gravity, Urine 1.021 (1.005-1.030)
[2025-02-26 10:06] LABS: Alanine Aminotransferase 25 U/L (0-33); Albumin Level 4.4 g/dL (3.5-5.2); Alkaline Phosphatase 91 U/L (35-105); Anion Gap 15.3 (5-19); Aspartate Amino Transferase 24 U/L (0-32); Blood Urea Nitrogen 13 mg/dL (8-23); Calcium 9.6 mg/dL (8.5-10.5); Carbon Dioxide 25 mmol/L (22-29); Chloride 106 mmol/L (98-107); Creatinine Clr Calc Pharmacy 72.1167; Globulin 3.3 g/dL (1.3-4.6); Glucose 119 mg/dL (65-115); Osmolality Calculated 295 mOsm/kg (285-295); Potassium 4.3 mmol/L (3.5-5.1); Sodium 142 mmol/L (136-145); Total Protein 7.7 g/dL (6.6-8.7)
[2025-02-26 10:17] LABS: Add Urine Microscopic? YES; UA Manual Slide Review YES
[2025-02-26 10:34] VITALS: BP 154/92; PULSE 68; O2SAT 97
== END 2025-02-26 10:35 | disposition home or self-care (01) ==
PROVIDERS: Emergency Provider Emergency Medicine; PCP Family Medicine
DX: R82.998 Other abnormal findings in urine (principal); Z79.82 Long term (current) use of aspirin; Z87.891 Personal history of nicotine dependence; E11.42 Type 2 diabetes mellitus with diabetic polyneuropathy; I10 Essential (primary) hypertension; Z86.73 Personal history of transient ischemic attack (TIA), and cerebral infarction without residual deficits
CPT/HCPCS: 36415; 80053; 81001; 82550; 85025; 87086; 99283

== ENCOUNTER → 2025-02-27 10:48 | Outpatient (BNVA) | payer MEDICARE, MEDICAID, SELFPAY | PROVIDERS: PCP Family Medicine; Visit Provider Family Medicine | DX: N89.8 Other specified noninflammatory disorders of vagina (principal) | CPT/HCPCS: 81513; 87481; 87491; 87591; 87661 ==

== ENCOUNTER 2025-03-06 07:12 | Outpatient (CLI) | payer MEDICARE, MEDICAID, SELFPAY ==
--- NOTE | 2025-03-06 07:15 | US_ITS ---
WS: [id number] US transvaginal 38025 HISTORY: PMB COMPARISON: 10/16/2021 Uterus: 4.7 cm x 3.0 cm x 2.7 cm. Small atrophic uterus. Vascular calcifications in the periphery of the uterus. No mass identified. Endometrium: 0.3 cm. Thin atrophic. No mass identified. No increased vascularity. Neither ovary identified. No adnexal mass. No free fluid. US/US transvaginal 55002 IMPRESSION: 1. Thin atrophic endometrium. No mass or increased vascularity. 2. Neither ovary identified. 3. Atrophic uterus.
== END 2025-03-06 07:13 | disposition home or self-care (01) ==
LOC: RAD 07:12
PROVIDERS: PCP Family Medicine; Visit Provider Family Medicine
DX: N95.0 Postmenopausal bleeding (principal); N85.8 Other specified noninflammatory disorders of uterus
CPT/HCPCS: 76830

== ENCOUNTER → 2025-03-07 08:00 | Outpatient (BNVA) | payer MEDICARE, MEDICAID, SELFPAY | PROVIDERS: PCP Family Medicine; Visit Provider Nurse Practitioner Family | DX: D22.5 Melanocytic nevi of trunk (principal); L81.4 Other melanin hyperpigmentation; L82.1 Other seborrheic keratosis; D48.5 Neoplasm of uncertain behavior of skin; L57.0 Actinic keratosis | CPT/HCPCS: 11102; 17000; 99203 ==

== ENCOUNTER → 2025-03-08 09:46 | Outpatient (BNVA) | payer MEDICARE, MEDICAID, SELFPAY | PROVIDERS: PCP Family Medicine; Visit Provider Surgery | DX: K21.9 Gastro-esophageal reflux disease without esophagitis (principal); K59.09 Other constipation; D64.9 Anemia, unspecified | CPT/HCPCS: 99204 ==

== ENCOUNTER → 2025-03-10 14:54 | Outpatient (BNVA) | payer MEDICARE, MEDICAID, SELFPAY | PROVIDERS: PCP Family Medicine; Visit Provider Nurse Practitioner Family | DX: C44.01 Basal cell carcinoma of skin of lip (principal); L81.4 Other melanin hyperpigmentation; L82.0 Inflamed seborrheic keratosis; L29.89 Other pruritus; R20.9 Unspecified disturbances of skin sensation; R20.8 Other disturbances of skin sensation; L53.8 Other specified erythematous conditions | CPT/HCPCS: 17110; 99213 ==

== ENCOUNTER 2025-03-23 09:54 | Day surgery (SDC) | payer MEDICARE, MEDICAID, SELFPAY ==
--- NOTE | 2025-03-23 10:12 | W.PM.OPSUD ---
Surgery/Procedure H&P Update DATE OF PROCEDURE: March 23, 2025 DATE H&P PERFORMED: 03/08/25 H&P UPDATE INFORMATION: I have reviewed H&P completed within last 30 days, I have examined patient prior to procedure, No changes to prior documentation, Changes to prior documentation as noted here and Risks and benefits of the procedure reviewed PLANNED PROCEDURE: Operation Date: 03/23/25 11:40 Proposed Procedures p EGD EGD with Biopsy [id number] G0105 D50.9 Z12.11(Not Applicable) - Jian Light MD s Colonoscopy(Not Applicable) - Jian Light MD
[2025-03-23 10:19] VITALS: BP 157/88; PULSE 57; RESP 18; TEMP 36.4; O2SAT 98; BMI 32.8
--- NOTE | 2025-03-23 10:40 | ANES.PREANE2 ---
Pre-Anesthetic Assessment Height/Weight: Height 1.68 m Weight 92.079 kg Temp Pulse Resp BP Pulse Ox O2 Del Method 97.6 F 57 L 18 157/88 98 Room Air 03/23/25 10:19 03/23/25 10:19 03/23/25 10:19 03/23/25 10:19 03/23/25 10:19 03/23/25 10:19 Operation Date: 03/23/25 11:40 Proposed Procedures p EGD EGD with Biopsy [id number] G0105 D50.9 Z12.11(Not Applicable) - Jian Light MD s Colonoscopy(Not Applicable) - Jian Light MD Familial anesthetic complications: none Was Beta Raghu taken within 24 hours: Yes Was Clonidine taken within 24 hours: Yes Last intake: Intake Last Liquid Date 03/22/25 Last Liquid Time 20:00 Last Solid Date 03/21/25 Social No alcohol and No tobacco Exam alert and oriented x 3 Airway Submandibular: within normal limits Cervical ROM: within normal limits Mallampati: Class I Dentition: false Pulmonary None reported CV/HEM Hypertension None reported Hepatic None reported GI Gastroesophageal Reflux Disease and Hiatal Hernia Metabolic Diabetes Mellitus and Hyperlipidemia [facility] None reported Neuropsych Anxiety and Depression Anesthetic Plan ASA status: 3 Anesthesia: Anesthesia Evaluation and MAC Risk of > 500 ml blood loss (7ml/kg in children): No Medications/Allergies Home Medications ?Medication ?Instructions ?Recorded ?Confirmed ?Last Taken ?Type aspirin 81 mg tablet,delayed 81 mg PO DAILY 07/08/19 03/20/25 03/20/25 History release (Adult Aspirin Regimen) metoprolol tartrate 50 mg tablet 50 mg PO BID 07/08/19 03/20/25 03/23/25 History budesonide-formoterol HFA 160 2 puff inhalation BID 07/18/19 03/23/25 Unknown History mcg-4.5 mcg/actuation aerosol inhaler (Symbicort) polyethylene glycol 3350 17 gram 17 g PO DAILY PRN constipation #14 08/30/23 03/20/25 03/20/25 Rx oral powder packet (Miralax) ea atorvastatin 10 mg tablet (Lipitor) 10 mg PO DAILY 01/27/25 03/20/25 03/22/25 History pantoprazole 40 mg tablet,delayed 40 mg PO QAM #90 tabs 01/27/25 03/20/25 03/23/25 Rx release duloxetine 60 mg capsule,delayed 60 mg PO DAILY #60 caps 02/27/25 03/20/25 03/22/25 Rx release ondansetron 8 mg disintegrating 8 mg PO Q8H PRN nausea and 03/08/25 03/23/25 Unknown Rx tablet vomiting #3 tabs polyethylene glycol 3350 17 17 g PO DAILY 5 days #238 grams 03/08/25 03/20/25 03/20/25 Rx gram/dose oral powder (Miralax) clonazepam 1 mg tablet 1 mg PO BID PRN anxiety #60 tabs 03/09/25 03/20/25 03/19/25 Rx quetiapine 100 mg tablet (Seroquel) 200 mg (2 x 100 mg) PO BID #180 03/09/25 03/20/25 03/21/25 Rx tabs duloxetine 30 mg capsule,delayed 30 mg PO DAILY 03/20/25 03/20/25 03/22/25 History release sprinkle (Drizalma Sprinkle) Allergies Allergy/AdvReac Type Severity Reaction Status Date / Time Penicillins Allergy Unknown Verified 03/23/25 10:11 trazodone Allergy ALGY-Rash Verified 03/23/25 10:11 Current Medications Generic Name Dose Route Start Last Admin Trade Name Freq PRN Reason Stop Dose Admin Sodium Chloride 1,000 mls @ 30 mls/hr 03/23/25 07:00 03/23/25 10:19 Sodium Chloride 0.9% IV 03/24/25 06:59 30 mls/hr .Q24H JUAN Administration PFSH Anesthesia Medical History (Updated 03/09/25 @ 11:27 by Edie Romeo CMA) Chronic constipation Persistent insomnia Dyslipidemia Diabetic polyneuropathy associated with type 2 diabetes mellitus Stress incontinence Type 2 diabetes mellitus without complication, without long-term current use of insulin Asthma Intervertebral disc disorders with radiculopathy, lumbar region H/O TIA (transient ischemic attack) and stroke Degeneration of intervertebral disc of lumbar region with discogenic back pain Benign essential HTN ELLY (generalized anxiety disorder) Moderate episode of recurrent major depressive disorder Gastroesophageal reflux disease without esophagitis Recurrent urinary tract infection Surgical History S/P right knee surgery S/P D&C (status post dilation and curettage) x 2 S/P colonoscopy Family History Sister Stroke mini strokes Hypertension Father Cancer Lung Hypertension Mother Cancer unsure-had to do with the heart Hypertension Brother Hypertension Denies family history of Diabetes Ovarian cyst Clotting disorder Heart disease Chronic kidney disease (CKD) Bleeding disorder Thyroid disease Social History Smoking and tobacco/nicotine status: never used tobacco/nicotine Substance/Drug Use: never Marital status:
--- NOTE | 2025-03-23 11:14 | PC.NURSE ---
cecum time 1114
[2025-03-23 11:24] VITALS: BP 99/53; PULSE 61; RESP 18; TEMP 36.2; O2SAT 93
[2025-03-23 11:45] VITALS: BP 123/80; PULSE 64; RESP 17; O2SAT 97
--- NOTE | 2025-03-23 12:03 | ANE.PACU2 ---
Inpatient post-anesthesia follow up: Airway intact: Yes Vital signs: Temperature 97.2 F Pulse Rate 64 Respiratory Rate 17 Blood Pressure 123/80 Pulse Oximetry 97 Oxygen Delivery Me thod Room Air Oxygen Flow Rate 3 Fraction of Inspir ed Oxygen Hydration adequate: Yes Nausea and vomiting: No Pain level: 1 Mental status: Baseline
== END 2025-03-23 12:04 | disposition home or self-care (01) ==
PROVIDERS: PCP Family Medicine; Visit Provider Surgery
PROC: 0DJ08ZZ Inspection of Upper Intestinal Tract, Via Natural or Artificial Opening Endoscopic (ICD-10-PCS; principal; 2025-03-23 11:40)
PROC: 0DJD8ZZ Inspection of Lower Intestinal Tract, Via Natural or Artificial Opening Endoscopic (ICD-10-PCS; CPT 45378; 2025-03-23 11:40)
DX: K21.9 Gastro-esophageal reflux disease without esophagitis (principal); K59.09 Other constipation; D64.9 Anemia, unspecified; D12.2 Benign neoplasm of ascending colon; K29.70 Gastritis, unspecified, without bleeding; K44.9 Diaphragmatic hernia without obstruction or gangrene
CPT/HCPCS: 43239; 43251; 45380; 45385; 88305; J2704; J7030

== ENCOUNTER → 2025-03-30 07:46 | Outpatient (BNVA) | payer MEDICARE, MEDICAID, SELFPAY | PROVIDERS: PCP Family Medicine; Visit Provider Dermatology | DX: B00.1 Herpesviral vesicular dermatitis (principal); R20.8 Other disturbances of skin sensation; L82.1 Other seborrheic keratosis; D36.13 Benign neoplasm of peripheral nerves and autonomic nervous system of lower limb, including hip; C44.01 Basal cell carcinoma of skin of lip | CPT/HCPCS: 17281; 99214 ==

== ENCOUNTER → 2025-04-11 10:22 | Outpatient (BNVA) | payer MEDICARE, MEDICAID, SELFPAY | PROVIDERS: PCP Family Medicine; Visit Provider Surgery | DX: Z09 Encounter for follow-up examination after completed treatment for conditions other than malignant neoplasm (principal) | CPT/HCPCS: 99213 ==

== ENCOUNTER → 2025-04-18 09:27 | Outpatient (BNVA) | payer MEDICARE, MEDICAID, SELFPAY | PROVIDERS: PCP Family Medicine; Visit Provider Nurse Practitioner Family | DX: L72.0 Epidermal cyst (principal); L81.4 Other melanin hyperpigmentation; Z08 Encounter for follow-up examination after completed treatment for malignant neoplasm; Z85.828 Personal history of other malignant neoplasm of skin; L82.0 Inflamed seborrheic keratosis; L53.8 Other specified erythematous conditions; R20.8 Other disturbances of skin sensation; D48.5 Neoplasm of uncertain behavior of skin | CPT/HCPCS: 11102; 17110; 99213 ==

== ENCOUNTER → 2025-04-21 11:19 | Outpatient (BNVA) | payer MEDICARE, MEDICAID, SELFPAY | PROVIDERS: PCP Family Medicine; Visit Provider Family Medicine | DX: D50.9 Iron deficiency anemia, unspecified (principal); D50.0 Iron deficiency anemia secondary to blood loss (chronic); E55.9 Vitamin D deficiency, unspecified | CPT/HCPCS: 80053; 82306; 82728; 83550; 85025 ==

== ENCOUNTER → 2025-04-28 13:31 | Outpatient (BNVA) | payer MEDICARE, MEDICAID, SELFPAY | PROVIDERS: PCP Family Medicine; Visit Provider Obstetrics & Gynecology | DX: R31.9 Hematuria, unspecified (principal); N95.0 Postmenopausal bleeding | CPT/HCPCS: 81000; 87624 ==

== ENCOUNTER → 2025-05-01 08:38 | Outpatient (BNVA) | payer MEDICARE, MEDICAID, SELFPAY | PROVIDERS: PCP Family Medicine; Visit Provider Obstetrics & Gynecology | DX: R31.9 Hematuria, unspecified (principal) | CPT/HCPCS: 81000 ==

== ENCOUNTER → 2025-05-02 09:16 | Outpatient (BNVA) | payer MEDICARE, MEDICAID, SELFPAY | PROVIDERS: PCP Family Medicine; Visit Provider Nurse Practitioner Family | DX: L44.8 Other specified papulosquamous disorders (principal); L72.0 Epidermal cyst; Z08 Encounter for follow-up examination after completed treatment for malignant neoplasm; Z85.828 Personal history of other malignant neoplasm of skin; L82.0 Inflamed seborrheic keratosis; L53.8 Other specified erythematous conditions; R20.8 Other disturbances of skin sensation | CPT/HCPCS: 17110; 99213 ==

== ENCOUNTER → 2025-05-15 09:21 | Outpatient (BNVA) | payer MEDICARE, MEDICAID, SELFPAY | PROVIDERS: PCP Family Medicine; Visit Provider Nurse Practitioner Family | DX: L23.1 Allergic contact dermatitis due to adhesives (principal); L91.8 Other hypertrophic disorders of the skin; L72.0 Epidermal cyst; L82.1 Other seborrheic keratosis; Z08 Encounter for follow-up examination after completed treatment for malignant neoplasm; Z85.828 Personal history of other malignant neoplasm of skin; L82.0 Inflamed seborrheic keratosis; R20.8 Other disturbances of skin sensation; L29.89 Other pruritus; L57.0 Actinic keratosis | CPT/HCPCS: 17000; 17110; 99213 ==

== ENCOUNTER → 2025-06-05 13:15 | Outpatient (BNVA) | payer MEDICARE, MEDICAID, OTHER, SELFPAY | PROVIDERS: PCP Family Medicine; Visit Provider Nurse Practitioner Family | DX: D23.71 Other benign neoplasm of skin of right lower limb, including hip (principal); L72.0 Epidermal cyst; L82.1 Other seborrheic keratosis; Z08 Encounter for follow-up examination after completed treatment for malignant neoplasm; Z85.828 Personal history of other malignant neoplasm of skin; L82.0 Inflamed seborrheic keratosis; R20.8 Other disturbances of skin sensation; L29.89 Other pruritus; L53.8 Other specified erythematous conditions | CPT/HCPCS: 17110; 99213 ==

== ENCOUNTER → 2025-07-04 12:38 | Outpatient (BNVA) | payer MEDICARE, MEDICAID, SELFPAY | PROVIDERS: PCP Family Medicine; Referring Provider Family Medicine; Visit Provider Internal Medicine | DX: R07.9 Chest pain, unspecified (principal); I10 Essential (primary) hypertension; E11.9 Type 2 diabetes mellitus without complications; K21.9 Gastro-esophageal reflux disease without esophagitis; E78.5 Hyperlipidemia, unspecified | CPT/HCPCS: 93005; 99204 ==